=== PATIENT | female | born 1985 | race Caucasian/White ===

== ENCOUNTER 2022-12-25 10:02 | Emergency (ER) | payer BC, SELFPAY ==
--- NOTE | ~2022-12-25 | CT_ITS ---
EXAMINATION: CT HEAD WITHOUT CONTRAST CLINICAL INFORMATION: Headache for 2 weeks COMPARISON: None TECHNIQUE: Contiguous axial imaging was performed from the skull base to vertex without intravenous administration of contrast. This CT examination was performed using dose optimization techniques as appropriate, variously including the following: *Automated exposure control *Adjustment of mA and/or kV according to patient size (this includes techniques or standardized protocols for targeted exams where dose is matched to indication/reason for exam; i.e. extremities or head) *Use of iterative reconstruction technique DLP: 602 mGy-cm FINDINGS: There is no acute intra-axial, extra-axial bleed, masses or midline shift. There is no acute infarction in evolution. The avila to white matter differentiation is maintained. The lateral ventricles are symmetrical in size and configuration without enlargement. There is no edema. No abnormality seen in the posterior fossa. Bone windows reveal no calvarial abnormality. Bilateral paranasal sinuses and mastoid air cells are well-aerated CT/CT head/brain wo IV con IMPRESSION: No acute intracranial process seen.
[2022-12-25 11:17] VITALS: BP 131/82; PULSE 68; RESP 16; TEMP 36.7; O2SAT 99; BMI 27.4
--- NOTE | 2022-12-25 11:19 | ED_ITS ---
HPI - General Adult General Chief complaint: Headache <TALITA Llamas - Last Filed: 12/31/22 11:23> Stated complaint: Headache/Eye pressure/Ear pain <TALITA Llamas - Last Filed: 12/31/22 11:23> Time Seen by Provider: 12/25/22 12:57 <TALITA Llamas - Last Filed: 12/31/22 11:23> Source: patient <Erendira MottaEVE medrano - Last Filed: 12/25/22 17:57> Mode of arrival: ambulatory <Erendira Ayala EVE Santa - Last Filed: 12/25/22 17:57> Limitations: no limitations <Erendira Lucymanny Santa CNP - Last Filed: 12/25/22 17:57> History of Present Illness HPI narrative: Patient is a 37-year-old female who presents emergency department for evaluation of a headache. She was referred from urgent care. Patient has been experiencing headaches for the past 2 weeks, with associated nausea, bilateral eye pain. She states the headache has been overall constant, unrelieved with acetaminophen or ibuprofen. Denies any history of migraine headaches in the past. She reports a history of a TIA when she was in her 20s. Denies confusion, difficulty with speech, vision changes, dizziness, lightheadedness, neck pain, neck stiffness, chest pain, shortness of breath, numbness or tingling of the extremities, weakness of the extremities. <Erendira Ayala EVE Santa - Last Filed: 12/25/22 17:57> Related Data Allergies/adverse reactions: Allergies Allergy/AdvReac Type Severity Reaction Status Date / Time sulfamethoxazole Allergy Intermediate HIVES Unverified 08/11/20 17:04 [From BACTRIM] trimethoprim [From BACTRIM] Allergy Intermediate HIVES Unverified 08/11/20 17:04 ethinyl estradiol AdvReac Intermediate TIA Unverified 08/11/20 17:04 [From ORTHO TRI-CYCLEN (28)] naproxen [NAPROXEN] AdvReac Intermediate GI UPSET Unverified 08/11/20 17:04 norgestimate AdvReac Intermediate TIA Unverified 08/11/20 17:04 [From ORTHO TRI-CYCLEN (28)] <TALITA Llamas - Last Filed: 12/31/22 11:23> Review of Systems Review of Systems: Constitutional : No Fever, No Chills, No Fatigue ENT/Mouth : No sore throat, No Rhinorrhea Eyes: No Eye Pain, No Swelling, No Redness Cardiovascular : No Chest Pain, No SOB, No Dyspnea on Exertion Respiratory : No Cough, No Sputum Gastrointestinal : No Nausea, No Vomiting, No Diarrhea, No abdominal Pain Genitourinary : No Dysuria, No Urinary Frequency, No Hematuria, Musculoskeletal : No joint pain, No Myalgias, No Joint Swelling Skin : No Skin Lesions, No rash Neuro : No Weakness, No Numbness, No Dizziness, positive Headache Psych : No Anxiety/Panic, No Depression Heme/Lymph: No Bruising, No Bleeding,No Lymphadenopathy Endocrine : No Polyuria, No Polydipsia <Erendira Santa CNP - Last Filed: 12/25/22 17:57> Yes all other systems are reviewed and are negative <Erendira Santa CNP - Last Filed: 12/25/22 17:57> [facility] Past Medical History Attestation statement: The following information was validated with the patient. <Erendira Santa CNP - Last Filed: 12/25/22 17:57> Source: old records reviewed <Erendira Santa CNP - Last Filed: 12/25/22 17:57> Social History Social History: Social History Alcohol intake: unknown Smoked in Last 30 Days: No Use of substances other than those prescribed or required for medical reasons: Unknown Advance Directives: No Advance Directives Information Provided: No <TALITA Llamas - Last Filed: 12/31/22 11:23> Physical Exam ED Vital Signs: Vital Signs - 24 hr 12/25/22 11:17 Temperature 98.1 F Pulse Rate 68 Respiratory Rate 16 Blood Pressure 131/82 Pulse Oximetry 99 Oxygen Delivery Method Room Air BMI result Body Mass Index 27.4 <TALITA Llamas - Last Filed: 12/31/22 11:23> Vital Signs - 24 hr 12/25/22 11:17 Temperature 98.1 F Pulse Rate 68 Respiratory Rate 16 Blood Pressure 131/82 Pulse Oximetry 99 Oxygen Delivery Method Room Air BMI result Body Mass Index 27.4 <Erendira Santa CNP - Last Filed: 12/25/22 17:57> Appearance: Alert.?Oriented to person, place and time. No acute distress.?Normal affect. Eyes: Pupils equal, round and reactive to light.? ENT: Pharynx normal.?? Neck: Normal inspection.? Neck supple.?? CVS: Heart sounds normal. Normal heart rate and rhythm.? Pulses normal.?? Respiratory: No respiratory distress.? Lung sounds clear to auscultation bilaterally?? Abdomen: Soft and non-tender. Normoactive bowel sounds. Skin: Skin warm and dry.? Normal skin color.? Extremities: No lower extremity edema.? Neuro: No focal neurological deficit observed, CN II-XII intact, normal sensory observed, normal coordination observed. Level of consciousness: Appropriate for age. Motor strength: Proximal right upper extremity 5 /5, distal right upper extremity 5 /5, proximal left upper extremity 5 /5, distal left upper extremity 5 /5, right lower extremity 5 /5, left lower extremity 5 /5.?Speech: Normal, Gait: Normal, Uuyvpj-[id number] test: Normal, Syej-ru-[id number] test: Normal. No focal neuro deficits. Ambulates with normal steady gait. <Erendira Santa CNP - Last Filed: 12/25/22 17:57> Course Course Course Narrative: RME: 37 yold female presents to the ED for headache for 2 weeks, nausea, and bilateral eye pain. Patient denies any weakness in extremites Negative for any neuro deficits on exam. eyes appear normal on inspection. Vital signs stable. SARS and Head CT ordered. labs. Ear exam is normal. no facial droop. NO blurry vision presently. <TALITA Llamas - Last Filed: 12/31/22 11:23> Reevaluation(s) Reevaluation #1: CBC is unremarkable. CMP is overall unremarkable. is negative. COVID- 19, influenza, RSV are all negative. Head CT is without any acute intracranial process. Advised by nursing staff at this time that they presented to patient's room for re-evaluation, her IV had been removed, her personal belongings gone from the room, be checked in the waiting room and patient is not present. Suspect that patient eloped at this time. attempted to call patient at her phone number, she did not answer. <Erendira Santa, BODY SHOP ESTIMATOR - Last Filed: 12/25/22 17:57> Time: 14:47 <Erendira Ayala EVE Santa - Last Filed: 12/25/22 17:57> Medications Administered Discontinued Medications Generic Name Dose Route Start Last Admin Trade Name Frehaley PRN Reason Stop Dose Admin Diphenhydramine HCl 25 mg 12/25/22 13:36 12/25/22 14:10 Diphenhydramine Hcl 50 Mg/Ml Vial IVPUSH 12/25/22 13:37 25 mg ONCE ONE Administration Sodium Chloride 1,000 mls @ 999 mls/hr 12/25/22 13:45 12/25/22 14:11 Ns IV 12/25/22 14:45 999 mls/hr .Q1H1M JIMMY Administration Ketorolac Tromethamine 30 mg 12/25/22 13:36 12/25/22 14:10 Ketorolac Tromethamine 30 Mg/Ml Vial IVPUSH 12/25/22 13:37 30 mg ONCE ONE Administration Metoclopramide HCl 10 mg 12/25/22 13:37 12/25/22 14:11 Metoclopramide Hcl 10 Mg/2 Ml Vial IVPUSH 12/25/22 13:38 10 mg ONCE ONE Administration <TALITA Llamas - Last Filed: 12/31/22 11:23> Medications Administered Discontinued Medications Generic Name Dose Route Start Last Admin Trade Name Mago PRN Reason Stop Dose Admin Diphenhydramine HCl 25 mg 12/25/22 13:36 12/25/22 14:10 Diphenhydramine Hcl 50 Mg/Ml Vial IVPUSH 12/25/22 13:37 25 mg ONCE ONE Administration Sodium Chloride 1,000 mls @ 999 mls/hr 12/25/22 13:45 12/25/22 14:11 Ns IV 12/25/22 14:45 999 mls/hr .Q1H1M JIMMY Administration Ketorolac Tromethamine 30 mg 12/25/22 13:36 12/25/22 14:10 Ketorolac Tromethamine 30 Mg/Ml Vial IVPUSH 12/25/22 13:37 30 mg ONCE ONE Administration Metoclopramide HCl 10 mg 12/25/22 13:37 12/25/22 14:11 Metoclopramide Hcl 10 Mg/2 Ml Vial IVPUSH 12/25/22 13:38 10 mg ONCE ONE Administration <Erendira Santa CNP - Last Filed: 12/25/22 17:57> Medical Decision Making Medical Decision Making [facility] Narrative: patient is a 37-year-old female with past medical reported past medical history of prior TIA presenting to the emergency department from urgent care for evaluation of intractable headache, nausea, bilateral eye pressure. overall sh manny is well-appearing at the time of my initial examination, drinking liquids at this time, tolerating well. Vital signs are stable. No focal neurological deficits Upon examination. Nursing staff at bedside to insert IV for medication administration, suspect migraine at this time, patient to receive 1 L normal saline IV fluid, ketorolac IV, Reglan. IV, Benadryl IV, and will review labs and CT from [facility]. <Erendira Santa CNP - Last Filed: 12/25/22 17:57> Differential Diagnosis Differential Diagnoses: The differential diagnosis associated with the presentation includes <Erendira Santa CNP - Last Filed: 12/25/22 17:57> Lab Data [facility] Lab Attestation statement: I reviewed the patient's lab results. <Erendira Santa CNP - Last Filed: 12/25/22 17:57> Result Diagrams: 12/25/22 11:42 12/25/22 11:42 <TALITA Llamas - Last Filed: 12/31/22 11:23> Labs: Lab Results 12/25/22 12/25/22 12/25/22 Range/Units 11:37 11:42 11:42 WBC 5.3 (4.8-10.8) X10*3/uL RBC 4.99 (4.20-5.50) X10*6/uL Hgb 13.9 (12.0-16.0) g/dl Hct 42.8 (37.0-47.0) % MCV 85.8 (80.0-98.0) fL MCH 27.9 (27.0-33.0) pg MCHC 32.5 (31.0-35.0) g/dl RDW 12.9 (11.0-16.0) % Plt Count TNP MPV 12.3 (9.4-12.3) fL Immature Gran % (Auto) 0.2 (0.0-0.4) % Neut % (Auto) 57.8 (45-73) % Lymph % (Auto) 33.1 (20-40) % [place] % (Auto) 7.0 (2-11) % Eos % (Auto) 1.5 (0-4) % Baso % (Auto) 0.4 (0-2) % Lymph # (Auto) 1.8 (1.2-4.9) X10*3/uL [place] # (Auto) 0.4 (0.1-1.2) X10*3/uL Eos # (Auto) 0.1 (0.0-0.4) X10*3/uL Baso # (Auto) 0.0 (0.0-0.2) X10*3/uL Abs Immat Gran (auto) 0.01 (0.00-0.03) X10*3/uL Absolute Neuts (auto) 3.1 (2.0-8.3) x10*3/uL Absolute Nucleated RBC 0.000 (0.0-0.012) X10*3/uL Nucleated RBC % (auto) 0.0 (0.0-0.2) /100WBC Smear Tech's Comments VERIFIED PT (10.0-13.1) SEC INR (0.9-1.1) APTT (26.0-36.4) SEC Sodium 140 (135-145) mmol/L Potassium 4.6 (3.3-5.1) mmol/L Chloride 107 (96-108) mmol/L Carbon Dioxide 22 (22-29) mmol/L Anion Gap 16 (12-20) BUN 17 H (9-16) mg/dL Creatinine 0.70 (0.5-1.4) mg/dL Estim Creat Clear Calc 106.3 Estimated GFR > 60 Random Glucose 96 (60-115) mg/dL Calcium 9.4 (8.4-10.2) mg/dL Total Bilirubin 0.4 (0.0-1.0) mg/dL AST 15 (5-31) U/L ALT 10 (0-31) U/L Alkaline Phosphatase 42 (39-117) U/L Total Protein 7.2 (6.5-8.0) g/dL Albumin 4.5 (3.5-5.0) g/dL Beta HCG, Quant < 2 mIU/mL Influenza Type A (PCR) NEGATIVE (Negative) Influenza Type B (PCR) NEGATIVE (Negative) RSV RNA Qual (PCR) NEGATIVE (Negative) SARS-CoV-2 RNA (RT-PCR) NEGATIVE (Negative) 12/25/22 Range/Units 12:14 WBC (4.8-10.8) X10*3/uL RBC (4.20-5.50) X10*6/uL Hgb (12.0-16.0) g/dl Hct (37.0-47.0) % MCV (80.0-98.0) fL MCH (27.0-33.0) pg MCHC (31.0-35.0) g/dl RDW (11.0-16.0) % Plt Count MPV (9.4-12.3) fL Immature Gran % (Auto) (0.0-0.4) % Neut % (Auto) (45-73) % Lymph % (Auto) (20-40) % [place] % (Auto) (2-11) % Eos % (Auto) (0-4) % Baso % (Auto) (0-2) % Lymph # (Auto) (1.2-4.9) X10*3/uL [place] # (Auto) (0.1-1.2) X10*3/uL Eos # (Auto) (0.0-0.4) X10*3/uL Baso # (Auto) (0.0-0.2) X10*3/uL Abs Immat Gran (auto) (0.00-0.03) X10*3/uL Absolute Neuts (auto) (2.0-8.3) x10*3/uL Absolute Nucleated RBC (0.0-0.012) X10*3/uL Nucleated RBC % (auto) (0.0-0.2) /100WBC Smear Tech's Comments PT 11.3 (10.0-13.1) SEC INR 1.0 (0.9-1.1) APTT 36.9 H (26.0-36.4) SEC Sodium (135-145) mmol/L Potassium (3.3-5.1) mmol/L Chloride (96-108) mmol/L Carbon Dioxide (22-29) mmol/L Anion Gap (12-20) BUN (9-16) mg/dL Creatinine (0.5-1.4) mg/dL Estim Creat Clear Calc Estimated GFR Random Glucose (60-115) mg/dL Calcium (8.4-10.2) mg/dL Total Bilirubin (0.0-1.0) mg/dL AST (5-31) U/L ALT (0-31) U/L Alkaline Phosphatase (39-117) U/L Total Protein (6.5-8.0) g/dL Albumin (3.5-5.0) g/dL Beta HCG, Quant mIU/mL Influenza Type A (PCR) (Negative) Influenza Type B (PCR) (Negative) RSV RNA Qual (PCR) (Negative) SARS-CoV-2 RNA (RT-PCR) (Negative) <TALITA Llamas - Last Filed: 12/31/22 11:23> Lab Results 12/25/22 12/25/22 12/25/22 Range/Units 11:37 11:42 11:42 WBC 5.3 (4.8-10.8) X10*3/uL RBC 4.99 (4.20-5.50) X10*6/uL Hgb 13.9 (12.0-16.0) g/dl Hct 42.8 (37.0-47.0) % MCV 85.8 (80.0-98.0) fL MCH 27.9 (27.0-33.0) pg MCHC 32.5 (31.0-35.0) g/dl RDW 12.9 (11.0-16.0) % Plt Count TNP MPV 12.3 (9.4-12.3) fL Immature Gran % (Auto) 0.2 (0.0-0.4) % Neut % (Auto) 57.8 (45-73) % Lymph % (Auto) 33.1 (20-40) % [place] % (Auto) 7.0 (2-11) % Eos % (Auto) 1.5 (0-4) % Baso % (Auto) 0.4 (0-2) % Lymph # (Auto) 1.8 (1.2-4.9) X10*3/uL [place] # (Auto) 0.4 (0.1-1.2) X10*3/uL Eos # (Auto) 0.1 (0.0-0.4) X10*3/uL Baso # (Auto) 0.0 (0.0-0.2) X10*3/uL Abs Immat Gran (auto) 0.01 (0.00-0.03) X10*3/uL Absolute Neuts (auto) 3.1 (2.0-8.3) x10*3/uL Absolute Nucleated RBC 0.000 (0.0-0.012) X10*3/uL Nucleated RBC % (auto) 0.0 (0.0-0.2) /100WBC Smear Tech's Comments VERIFIED PT (10.0-13.1) SEC INR (0.9-1.1) APTT (26.0-36.4) SEC Sodium 140 (135-145) mmol/L Potassium 4.6 (3.3-5.1) mmol/L Chloride 107 (96-108) mmol/L Carbon Dioxide 22 (22-29) mmol/L Anion Gap 16 (12-20) BUN 17 H (9-16) mg/dL Creatinine 0.70 (0.5-1.4) mg/dL Estim Creat Clear Calc 106.3 Estimated GFR > 60 Random Glucose 96 (60-115) mg/dL Calcium 9.4 (8.4-10.2) mg/dL Total Bilirubin 0.4 (0.0-1.0) mg/dL AST 15 (5-31) U/L ALT 10 (0-31) U/L Alkaline Phosphatase 42 (39-117) U/L Total Protein 7.2 (6.5-8.0) g/dL Albumin 4.5 (3.5-5.0) g/dL Beta HCG, Quant < 2 mIU/mL Influenza Type A (PCR) NEGATIVE (Negative) Influenza Type B (PCR) NEGATIVE (Negative) RSV RNA Qual (PCR) NEGATIVE (Negative) SARS-CoV-2 RNA (RT-PCR) NEGATIVE (Negative) 12/25/22 Range/Units 12:14 WBC (4.8-10.8) X10*3/uL RBC (4.20-5.50) X10*6/uL Hgb (12.0-16.0) g/dl Hct (37.0-47.0) % MCV (80.0-98.0) fL MCH (27.0-33.0) pg MCHC (31.0-35.0) g/dl RDW (11.0-16.0) % Plt Count MPV (9.4-12.3) fL Immature Gran % (Auto) (0.0-0.4) % Neut % (Auto) (45-73) % Lymph % (Auto) (20-40) % [place] % (Auto) (2-11) % Eos % (Auto) (0-4) % Baso % (Auto) (0-2) % Lymph # (Auto) (1.2-4.9) X10*3/uL [place] # (Auto) (0.1-1.2) X10*3/uL Eos # (Auto) (0.0-0.4) X10*3/uL Baso # (Auto) (0.0-0.2) X10*3/uL Abs Immat Gran (auto) (0.00-0.03) X10*3/uL Absolute Neuts (auto) (2.0-8.3) x10*3/uL Absolute Nucleated RBC (0.0-0.012) X10*3/uL Nucleated RBC % (auto) (0.0-0.2) /100WBC Smear Tech's Comments PT 11.3 (10.0-13.1) SEC INR 1.0 (0.9-1.1) APTT 36.9 H (26.0-36.4) SEC Sodium (135-145) mmol/L Potassium (3.3-5.1) mmol/L Chloride (96-108) mmol/L Carbon Dioxide (22-29) mmol/L Anion Gap (12-20) BUN (9-16) mg/dL Creatinine (0.5-1.4) mg/dL Estim Creat Clear Calc Estimated GFR Random Glucose (60-115) mg/dL Calcium (8.4-10.2) mg/dL Total Bilirubin (0.0-1.0) mg/dL AST (5-31) U/L ALT (0-31) U/L Alkaline Phosphatase (39-117) U/L Total Protein (6.5-8.0) g/dL Albumin (3.5-5.0) g/dL Beta HCG, Quant mIU/mL Influenza Type A (PCR) (Negative) Influenza Type B (PCR) (Negative) RSV RNA Qual (PCR) (Negative) SARS-CoV-2 RNA (RT-PCR) (Negative) <Erendira Santa CNP - Last Filed: 12/25/22 17:57> Independent Interpretation I performed an independent interpretation of an: CT Scan <Erendira Santa CNP - Last Filed: 12/25/22 17:57> Radiology Impression Discussion of test interpretation with radiology: I have reviewed the radiologist's reading. <Erendira Santa CNP - Last Filed: 12/25/22 17:57> Radiologist Impression: CT/CT head/brain wo IV con IMPRESSION: No acute intracranial process seen. <Erendira Santa CNP - Last Filed: 12/25/22 17:57> Discharge Plan Discharge Clinical Impression: Headache <TALITA Llamas - Last Filed: 12/31/22 11:23> Patient Disposition: Elopement <TALITA Llamas - Last Filed: 12/31/22 11:23> Interventions: ED Discharge Assessment Last Done: 12/25/22 14:56 <TALITA Llamas - Last Filed: 12/31/22 11:23> Discharge Date/Time: 12/25/22 14:56 <TALITA Llamas - Last Filed: 12/31/22 11:23>
[2022-12-25 11:58] LABS: Basophils Percent Auto 0.4 % (0-2); Eosinophils Absolute Auto 0.1 X10*3/uL (0.0-0.4); Eosinophils Percent Auto 1.5 % (0-4); Hematocrit 42.8 % (37.0-47.0); Hemoglobin 13.9 g/dl (12.0-16.0); Imm Gran Abs Auto 0.01 X10*3/uL (0.00-0.03); Imm Gran Pct Auto 0.2 % (0.0-0.4); Lymphocytes Absolute Auto 1.8 X10*3/uL (1.2-4.9); Lymphocytes Percent Auto 33.1 % (20-40); MANUAL DIFF FLAG SCAN; Mean Corpuscular HGB Conc 32.5 g/dl (31.0-35.0); Mean Corpuscular Hemoglobin 27.9 pg (27.0-33.0); Mean Corpuscular Volume 85.8 fL (80.0-98.0); Mean Platelet Volume 12.3 fL (9.4-12.3); Monocytes Absolute Auto 0.4 X10*3/uL (0.1-1.2); Neutrophils Absolute Auto 3.1 x10*3/uL (2.0-8.3); Neutrophils Percent Auto 57.8 % (45-73); PLT CLUMP 1; Red Blood Count 4.99 X10*6/uL (4.20-5.50); Red Cell Distribution Width 12.9 % (11.0-16.0); SCAN SMEAR FLAG 1
[2022-12-25 12:25] LABS: Influenza A PCR NEGATIVE (Negative); Influenza B PCR NEGATIVE (Negative); Resp Syncy Virus RNA Qual PCR NEGATIVE (Negative); SARS COV2 PCR INHOUSE NEGATIVE (Negative)
[2022-12-25 12:29] LABS: Alanine Aminotransferase 10 U/L (0-31); Albumin Level 4.5 g/dL (3.5-5.0); Alkaline Phosphatase 42 U/L (39-117); Anion Gap 16 (12-20); Aspartate Amino Transferase 15 U/L (5-31); Bilirubin Total 0.4 mg/dL (0.0-1.0); Blood Urea Nitrogen 17 mg/dL (9-16); Calcium 9.4 mg/dL (8.4-10.2); Carbon Dioxide 22 mmol/L (22-29); Chloride 107 mmol/L (96-108); Creatinine Clr Calc Pharmacy 106.3; Estimated Glomerular Filt Rate > 60; Glucose Random 96 mg/dL (60-115); HCG Quantitative < 2 mIU/mL; Potassium 4.6 mmol/L (3.3-5.1); Sodium 140 mmol/L (135-145); Total Protein 7.2 g/dL (6.5-8.0)
[2022-12-25 12:30] LABS: Prothrombin Time 11.3 SEC (10.0-13.1)
[2022-12-25 12:33] LABS: SLIDE REVIEW VERIFIED; White Blood Count 5.3 X10*3/uL (4.8-10.8)
[2022-12-25 12:33] LABS: Partial Thromboplastin Time 36.9 SEC (26.0-36.4)
--- NOTE | 2022-12-25 12:44 | PC.NURSE ---
Patient AOx 4 no respiratory distress noted Neuros intact no facial droop no deviation of tongue no drift noted. Patient took OTC pain meds for headache with little effect complaint of some photosensitivity no history of migraines. Patient does have history of TIA when younger not on blood thinners will CTM
[2022-12-25] MEDS: Ketorolac Tromethamine 30 MG/ML VIAL IVPUSH (14:10)
[2022-12-25] MEDS: diphenhydrAMINE HCL 50 MG/ML VIAL 25 MG IVPUSH (14:10)
[2022-12-25] MEDS: Metoclopramide HCl 10 MG/2 ML VIAL IVPUSH (14:11)
[2022-12-25] MEDS: 0.9 % Sodium Chloride 1,000 ML 999 ML IV (14:11)
--- NOTE | 2022-12-25 14:46 | PC.NURSE ---
Patient not in room IV removed and fluids turned off patient not in lobby or any bathrooms in ED no staff saw patient leave two attempts to call patient house superintendent aware.
== END 2022-12-25 14:56 | disposition left against medical advice (07) ==
PROVIDERS: Physician Assistant; Emergency Provider Emergency Medicine; PCP Internal Medicine
DX: R51.9 Headache, unspecified (principal); R11.0 Nausea; H57.13 Ocular pain, bilateral; Z20.822 Contact with and (suspected) exposure to COVID-19; Z20.828 Contact with and (suspected) exposure to other viral communicable diseases; Z86.73 Personal history of transient ischemic attack (TIA), and cerebral infarction without residual deficits
CPT/HCPCS: 0241U; 36415; 70450; 80053; 84702; 85025; 85610; 85730; 96374; 96375; 99284; J1200; J1885; J2765

== ENCOUNTER 2024-11-20 05:52 | Emergency (ER) | payer BC, SELFPAY ==
--- NOTE | ~2024-11-20 | XR_ITS ---
EXAMINATION: XR SACRUM AND COCCYX CLINICAL INFORMATION: trauma, fall COMPARISON: None available. TECHNIQUE: 2 AP views of the sacrum and lateral view of the coccyx were obtained. FINDINGS: The pelvis is gynecoid. On the lateral projection, there may be a subtle nondisplaced fracture of the distal sacrum just above the coccyx. (5th sacral segment) No fracture, dislocation, or suspicious bone lesion. 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 SI joints appear normal otherwise without erosion or and only mild degenerative arthritis. No soft tissue abnormalities. XR/XR sacrum coccyx min 2V IMPRESSION: 1. Possible nondisplaced fracture of the fifth sacral segment, only seen on lateral. This is not definitive as there is extensive anatomical variation of the sacrum and coccyx in this region. Correlate with mechanism of injury. 2. 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 No inflammatory changes. 3. Exam otherwise normal. Electronically signed by: Vj Alan MD 11/20/2024 09:05 AM VALERIE PHIPPS
[2024-11-20 06:07] VITALS: BP 125/64; PULSE 98; RESP 18; TEMP 36.7; O2SAT 96; BMI 28.3
--- NOTE | 2024-11-20 09:39 | ED_ITS ---
HPI - Back Pain/Injury General Chief Complaint: Back Pain/Injury Stated Complaint: fell on the ice , lower back pain Time Seen by Provider: 11/20/24 09:38 Source: patient Limitations: no limitations History of Present Illness ED Provider: Erendira Santa NP HPI Narrative: Patient is a 39-year-old female who presents to the emergency department for evaluation after mechanical slip and fall on ice 3 days ago where she landed onto coccyx. Reports that she was evaluated at [facility], states that she had an x-ray obtained which did not show evidence of a fracture who was advised that there may be nerve impingement which she may benefit from a steroid injection although they did not have an appointment available to offer her until the end of November. The additionally told her that she would need a scan , she presumes an MRI to evaluate further for potential nerve involvement but this is not scheduled until December. She received a prescription for Medrol Dosepak which she began taking yesterday but so far she states has not provided her with any relief. She is having sharp pain and finds it difficult to sit still and has had a hard time sleeping. She does state that she has an appointment next week scheduled at [facility] for cervical steroid injection that she receives due to a compression fracture and subsequent migraines, she plans to contact their office to see whether they can alternatively provide her with steroid injection for her new injury. Denies fevers, chills, burning with micturition, urinary frequency/urgency/hesitancy, bladder or bowel dysfunction, numbness or tingling of the perineum or bilateral legs. Denies any recent surgical procedures, any known immune compromising conditions, personal history of cancer, or IV drug usage. elicited complaint: back pain Related Data Previous Rx's ?Medication ?Instructions ?Recorded oxycodone 5 mg tablet 5 mg PO Q6H PRN pain #10 tabs 11/20/24 Allergies Allergy/AdvReac Type Severity Reaction Status Date / Time sulfamethoxazole Allergy Intermediate HIVES Verified 11/20/24 06:07 [From BACTRIM] trimethoprim [From BACTRIM] Allergy Intermediate HIVES Verified 11/20/24 06:07 ethinyl estradiol AdvReac Intermediate TIA Verified 11/20/24 06:07 [From ORTHO TRI-CYCLEN (28)] naproxen [NAPROXEN] AdvReac Intermediate GI UPSET Verified 11/20/24 06:07 norgestimate AdvReac Intermediate TIA Verified 11/20/24 06:07 [From ORTHO TRI-CYCLEN (28)] Review of Systems Review of Systems: Yes all other systems are reviewed and are negative [facility] Past Medical History Attestation statement: The following information was validated with the patient. Source: old records reviewed Social History Social History Alcohol intake: unknown Advance Directives: No Advance Directives Information Provided: Yes Do you have a plan to hurt others: No Plan Physical Exam 2 Vital Signs: Vital Signs: Last Vital Signs Temp 98.1 F 11/20/24 06:07 Pulse 98 11/20/24 06:07 Resp 18 11/20/24 06:07 BP 125/64 11/20/24 06:07 Pulse Ox 96 11/20/24 06:07 O2 Del Method Room Air 11/20/24 06:07 BMI result Body Mass Index 28.3 Appearance: Alert.?Oriented to person, place and time. No acute distre ss.?Normal affect. Eyes: Pupils equal, round and reactive to light.? ENT: Pharynx normal.?? Neck: Normal inspection.? Neck supple.?? CVS: Heart sounds normal. Normal heart rate and rhythm.? Pulses normal; bilateral radial pulses 2+, bilateral posterior tibial/dorsalis pedis pulses 2+.? Respiratory: No respiratory distress.? Lung sounds clear to auscultation bilaterally?? Abdomen: Soft and non-tender. Normoactive bowel sounds. No pulsatile mass.?? Skin: Skin warm and dry.? Normal skin color.? Normal skin turgor.?? Extremities: No lower extremity edema.? No calf ttp? Back: + mild tenderness f bilateral SI joint. No CVA tenderness. No midline spinal tenderness, step-off's, or deformity. Full ROM intact in bilateral lower extremities. Straight leg test negative on right; Straight leg test negative on left. No rashes, lesions, areas of induration or fluctuance, or signs of infection noted., Neuro: Moves all extremities spontaneously. 5/5 strength in hip extension/flexion, abduction, adduction. Sensation to light touch intact bilaterally. Patellar and Achilles reflex 2+ bilaterally. No ataxia, gait normal and steady.. No focal neuro deficits. Medical Decision Making Medical Decision Making MDM Narrative: Patient is a 39-year-old female who presents emergency department for evaluation of traumatic sacral pain after mechanical slip and fall as per HPI. Unfortunately she drove herself here today, and does need to leave to get home soon. Would defer any medication management due to concern for sedating/drowsy effects. Advised to continue use of the methylprednisolone pack as prescribed, further reiterated to avoid OTC NSAIDs. Discussed conservative treatment including rest, ice, alleviation of pressure from the sacrum/coccyx with use of a donut style pillow. She does have an upcoming flight next week she is worried whether she will be able to sit through the flight comfortably. I did advise her that this may further exacerbate her pain in worsen things, she would need to make a decision as to whether she will continue with her travel as scheduled. Offered contact information for Orthopedic office associated with our hospital she however declines. She plans to contact the [facility] again as well as [facility] to see whether they will get her in sooner for additional treatment. Live agree to a short course of oxycodone for acute pain management in the setting of possible 5th sacral segment fracture seen on XR imaging. She does state that she has a history of a sacral fracture a few years back she is not certain where in the sacrum this was. However given the mechanism of injury, fracture may very well be possible. She additionally has mild degenerative arthritic changes to the bilateral SI joints which may also be attributing to diffuse pain in this area. Discussed with patient can not completely exclude herniated disc, or impingement of nerves, at this time there is no indication for emergent MRI. On neurological exam there are no deficits. Exam findings not consistent with cauda equina syndrome. No recent fevers, unintentional weight loss, history of IVDA, high-risk past medical history, immunosuppression, recent surgery or lumbar puncture to suggest spinal infectio n, epidural abscess, malignancy. No genitourinary symptoms, afebrile, no CVA tenderness, unlikely urinary tract infection, pyelonephritis, renal colic. No history of nephrolithiasis/ureteral calculi. Differential Diagnosis Differential Diagnoses: The differential diagnosis associated with the presentation includes ( see narrative above) Admission/Observation Consideration of admission/observation: Escalation of care including admission/observation considered ( see narrative above) Independent Interpretation I performed an independent interpretation of an: Plain X-Ray Radiology Impression Discussion of test interpretation with radiology: I have reviewed the radiologist's reading. Radiologist Impression: XR/XR sacrum coccyx min 2V IMPRESSION: 1. Possible nondisplaced fracture of the fifth sacral segment, only seen on lateral. This is not definitive as there is extensive anatomical variation of the sacrum and coccyx in this region. Correlate with mechanism of injury. 2. 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 No inflammatory changes. 3. Exam otherwise normal. External Record Review External record reviewed: Outpatient record and Other I attest that I have reviewed patients [employer], and at the time prescribing the patient a controlled substance is appropriate based off of patients diagnosis and treatment plan. Prescription Management I considered prescription management with: Pain Medication Discharge Plan Discharge Clinical Impression: Closed sacral fracture Patient Disposition: Home, Self-Care Instructions: Sacral Fracture (ED) Additional Instructions: Follow-up with [facility] as you have previously scheduled. At your discretion as mentioned you may have a conversation with them about considering treatment for your acute condition. As discussed, it appears as though there may be a fracture of the 5th segment of your sacrum. You did admit to having a prior fracture a few years back emergent not have access to this imaging to determine if things appear new or otherwise stable. However given your recent injury, it is quite possible this is a new fracture continue taking the Medrol Dosepak your previously prescribed. I have sent short prescription for oxycodone to your pharmacy to use for severe pain. This is a narcotic medication. It can be addicting. It may make you drowsy. You should not drive, drink alcohol, or work while taking this medication. Consider purchasing an [id number] donut shaped pillow to help alleviate pressure from this area of pain. Contact your primary care doctor's office today to arrange for a follow-up visit for further evaluation and management if you are unable to get in to see your specialist sooner, especially given your upcoming trip you may require additional analgesia support. XR/XR sacrum coccyx min 2V IMPRESSION: 1. Possible nondisplaced fracture of the fifth sacral segment, only seen on lateral. This is not definitive as there is extensive anatomical variation of the sacrum and coccyx in this region. Correlate with mechanism of injury. 2. 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 No inflammatory changes. 3. Exam otherwise normal. Prescriptions: New oxycodone 5 mg tablet 5 mg PO Q6H PRN (Reason: pain) Qty: 10 0RF Rx Instructions: Partial Fill upon patient request. Referrals: Idris Frias MD [Primary Care Provider] - Print Language: Estonian
--- NOTE | 2024-11-20 10:25 | PC.NURSE ---
pt was assessed by provider and radiology results were reviewed with patient. the discharge care plan was reviewed, she is resting in a sidelying postion, transferring to sitting then stand is very guarded.
[2024-11-20 10:29] VITALS: BP 125/64; PULSE 98; RESP 18; TEMP 36.7; O2SAT 96
== END 2024-11-20 10:30 | disposition home or self-care (01) ==
PROVIDERS: Emergency Provider Emergency Medicine; PCP Internal Medicine
DX: S32.10XA Unspecified fracture of sacrum, initial encounter for closed fracture (principal); M54.50 Low back pain, unspecified; W00.0XXA Fall on same level due to ice and snow, initial encounter; Y93.89 Activity, other specified; Y92.89 Other specified places as the place of occurrence of the external cause; Y99.8 Other external cause status
CPT/HCPCS: 72220; 99282; 99283

== ENCOUNTER → 2024-11-20 07:11 | Outpatient (BNV) | payer BC, SELFPAY | PROVIDERS: Emergency Provider Emergency Medicine; PCP Internal Medicine; Visit Provider Radiology Diagnostic Radiology | DX: S32.10XA Unspecified fracture of sacrum, initial encounter for closed fracture (principal); W00.0XXA Fall on same level due to ice and snow, initial encounter | CPT/HCPCS: 72220 ==

== ENCOUNTER 2025-11-10 15:48 | Emergency (ER) | payer BC, SELFPAY ==
--- OUTSIDE RECORDS SUMMARY | 2019-10-28 12:11 | XMS_ITS | Encounter Summary ---
Author Organization [facility] Address [address] [facility] [address] [place] [phone] Phone Care Team Providers Care Yard Labor Supervisor Name Role Phone Idris Frias Primary Care Provider [phone] Encounter Details Date Type Department Care Team (Late st Contact Info) Description 10/28/2019 12:11 PM [facility] Encounter [facility] [address] [place] [id number] Anthony Naranjo, DALE [address] [place] [address] [place] [address] Social History Tobacco Use Types Packs/Day Years Used Date Smoking Tobacco: Never Smokeless Tobacco: Never Alcohol Use Standard Drinks/Week Comments No 0 (1 standard drink = 0.6 oz pur e alcohol) Education Answer Date Recorded Are you interested in more education? Not on jann e 03/22/2023 Are you concerned about learning? Not on file 03/22/2023 No 03/22/2023 No 03/22/2023 Digital Access Answer Date Recorded No 04/19/2023 No 04/19/2023 Reliable internet access at home? Not on file 04/19/2023 Device with a working camera? Not on file Intimate Partner Violence Answer Date R ecorded Are you denied basic needs s uch as food, clothing, or medical care? No 11/26/2023 In the past 12 months have y ou been in a relationship with a person who hurts, threatens, or tries to control you? No 11/26/2023 Are you denied basic needs s uch as food, clothing, or medical care? No 11/26/2023 In the past 12 months have y ou been in a relationship with a person who hurts, threatens, or tries to control you? No 11/26/2023 Comments No Sex and Gender Information Value Date Recorded Sex Assigned at Female 04/13/2018 7:16 PM EDT Legal Sex Female 9:16 PM EDT Gender Identity Female 04/13/2018 7:16 PM EDT Sexual Orientation Not on file documented as of this encounter Functional Status * Calculated C-SSRS Risk Score (Lifetime/Recent) Answer Date of Assessment Author No Risk Indicated 11/26/2023 8:27 PM EST Nayeli Llanos RN * [place] Suicide Severity Rating Scale (Screener/Recent Self-Report) Question Answer Date of Assessment Author 1. Wish to be (Past 1 Month) No 024 8:27 PM EST Nayeli Llanos RN 2. Non-Specific Active Suici sadie Thoughts (Past 1 Month) No 11/26/2023 8:27 PM EST Eden Llanos RN 6. Suicidal Behavior (Lifetime) No 4 8:27 PM EST Nayeli Llanos RN documented as of this encounter Plan of Treatment Not on file documented as of this encounter Procedures Procedure Name Priority Date/Time Associated Diagnosis Comments XR FOOT 3 OR MORE VIEWS (LEFT) Urgent/patient waiting 10/28/2019 12:22 PM EST Left foot pain documented in this encounter Results * XR FOOT 3 OR MORE VIEWS (LEFT) (10/28/2019 12:22 PM EST) Anatomical Region Laterality Modality Foot Left Radiographic Lou ging 10/28/2019 12:3 1 PM EST Impressions 10/28/2019 12:33 PM EST No evidence of acute fractures. POS - [id number] Narrative 10/28/2019 12:33 PM EST HISTORY: Pain laterally after injury. COMPARISON: None VIEWS: Four views FINDINGS: No evidence of fractures. No subluxations or dislocations. Joint spaces well-maintained. Procedure Note Huey Issa MD - 10/28/2019 HISTORY: Pain laterally after injury. COMPARISON: None VIEWS: Four views FINDINGS: No evidence of fractures. No subluxations or dislocations. Joint spaceswell-maintained. IMPRESSION: No evidence of acute fractures. POS - [id number] Anthony Naranjo FOOD ORDER DELIVERY RUNNER IMG XR LOWER EXTREMITY Final Re sult documented in this encounter Visit Diagnoses Not on filedocumented in this encounter Care Teams Yard Labor Supervisor Relationship Specialty Start Date End Date Idris Frias DO [email or web address] PCP - General 09/12/17 documented as of this encounter Additional Source Comments The information contained in this document represents components of the legal health record. It is not the complete legal health record.[facility]
--- NOTE | ~2025-11-10 | CT_ITS ---
EXAMINATION: CT HEAD WITHOUT CONTRAST (STROKE PROTOCOL) CLINICAL INFORMATION: Stroke protocol. COMPARISON: December 25, 2022. TECHNIQUE: Contiguous axial imaging was performed from the skull base to vertex without intravenous administration of contrast. This CT examination was performed using dose optimization techniques as appropriate, variously including the following: *Automated exposure control *Adjustment of mA and/or kV according to patient size (this includes techniques or standardized protocols for targeted exams where dose is matched to indication/reason for exam; i.e. extremities or head) *Use of iterative reconstruction technique DLP: 684 mGy-cm FINDINGS: No acute intracranial hemorrhage, mass effect, midline shift, hydrocephalus or herniation. No increased density in the MCA Bravo-white matter differentiation is normal. Posterior cranial fossa contents demonstrated no mass effect or acute hemorrhage. Normal position of the cerebellar tonsils. Sellar/suprasellar region is normal. No acute fracture in the bony calvarium. No air-fluid levels in the paranasal sinuses. Tympanic cavities and mastoid cells are aerated. CT/CT head for STROKE IMPRESSION: No acute intracranial hemorrhage or acute brain abnormality by CT. This critical result was discussed with emergency physician Dr. Max Miller prepped at 4:09 PM hours on November 10, 2025.. It was ascertained that the content and urgency of the report was understood at the time of direct communication. Electronically signed by: Jamal Newby MD 11/10/2025 04:11 PM [facility]
--- NOTE | ~2025-11-10 | CT_ITS ---
EXAMINATION: CT ANGIOGRAM HEAD AND NECK CLINICAL INFORMATION: Stroke protocol. COMPARISON: None available. Correlation made with noncontrast head CT earlier same day. TECHNIQUE: Test bolus sequences and head and neck intravenous bolus administration 70 mL of Omnipaque 350. Helical imaging was performed in the axial plane from the aortic arch to the skull vertex. A [address] head was also obtained. The data was processed at the textile technologist's workstation for generation of MIP sequences. Angled MIPs and volume rendered reformatted images were also generated at an offline 3D workstation. Stenoses are assessed in accordance with NASCET criteria unless otherwise indicated. This CT examination was performed using dose optimization techniques as appropriate, variously including the following: *Automated exposure control *Adjustment of mA and/or kV according to patient size (this includes techniques or standardized protocols for targeted exams where dose is matched to indication/reason for exam; i.e. extremities or head) *Use of iterative reconstruction technique FINDINGS: NECK CTA: -AORTIC ARCH: Normal in caliber. No significant atheromatous calcification. Three-vessel branching pattern. -GREAT VESSEL ORIGINS: Widely patent. No stenosis. -RIGHT COMMON CAROTID ARTERY: Normal in course and caliber to the level of the bifurcation. -CERVICAL RIGHT INTERNAL CAROTID ARTERY: Normal opacification without focal stenosis or occlusion. -LEFT COMMON CAROTID ARTERY: Normal in course and caliber to the level of the bifurcation. -CERVICAL LEFT INTERNAL CAROTID ARTERY: Normal opacification without focal stenosis or occlusion. -CERVICAL RIGHT VERTEBRAL ARTERY: Slightly dominant. Normal in origin, course and caliber into the skull base. -CERVICAL LEFT VERTEBRAL ARTERY: Slightly nondominant. Normal in origin, course and caliber into the skull base. OTHER, SOFT TISSUES: -No lymphadenopathy or mass. No abnormal fluid collection or soft tissue swelling. -There is a 10 mm nodule in the right posterior thyroid. Thyroid otherwise normal. -Imaged superior mediastinal structures normal. -Imaged lung apices clear. CTA OF THE BRAIN: -INTRACRANIAL INTERNAL CAROTID ARTERIES: Normal. Normal ophthalmic artery origins bilaterally. -RIGHT ANTERIOR CEREBRAL ARTERY: Normal A1 segment. Normal arborization of the distal segments. -LEFT ANTERIOR CEREBRAL ARTERY: Normal A1 segment. Normal arborization of the distal segments. -ANTERIOR COMMUNICATING ARTERY: Normal. -RIGHT MIDDLE CEREBRAL ARTERY: Normal M1 segment of the MCA without focal stenosis or occlusion. Normal bifurcation. Normal arborization of the distal segments. -LEFT MIDDLE CEREBRAL ARTERY: Normal M1 segment of the MCA without focal stenosis or occlusion. Normal bifurcation. Normal arborization of the distal segments. -RIGHT VERTEBRAL ARTERY V4: Normal in course and caliber. Normal PICA branch. -LEFT VERTEBRAL ARTERY V4: Normal in course and caliber. There is a left AICA/PICA. -BASILAR ARTERY: Normal without focal stenosis or occlusion. Normal appearance of the proximal superior cerebellar arteries. Normal basilar tip. -RIGHT POSTERIOR CEREBRAL ARTERY: Normal P1 segment. Normal opacification of the distal FIELD HAND segments. -LEFT POSTERIOR CEREBRAL ARTERY: Normal P1 segment. Normal opacification of the distal FIELD HAND segments. -POSTERIOR COMMUNICATING ARTERIES: The right is present and well seen. The left is not well visualized. Normal opacification of the superior sagittal, straight, transverse, and sigmoid sinuses. No venous thrombosis. No space-occupying hemorrhage or definite evolving infarct. CT/CT angio head neck STROKE IMPRESSION: CTA NECK: 1. No evidence of significant stenosis, occlusion, dissection, or aneurysm of the major cervical arterial vasculature. 2. Right thyroid nodule measuring 10 mm. CTA HEAD: 1. No evidence of significant stenosis, occlusion, dissection, or aneurysm of the major intracranial arterial vasculature. 2. Major cortical and dural venous sinuses are patent. 3. No space-occupying hemorrhage or evolving infarct identified. Electronically signed by: Vj lAan MD 11/10/2025 04:29 PM EST
--- NOTE | 2025-11-10 15:54 | ECG_ITS ---
Test Reason : STROKE PROTOCOL Blood Pressure : */* mmHG Vent. Rate : 90 BPM Atrial Rate : 90 BPM P-R Int : 154 ms QRS Dur : 96 ms QT Int : 376 ms P-R-T Axes : 55 -3 18 degrees QTcB Int : 459 ms Normal sinus rhythm Possible Left atrial enlargement Incomplete right bundle branch block Borderline ECG No previous ECGs available Referred By: Max Chavarria Electronically Signed By: Robel Carrasquillo
--- NOTE | 2025-11-10 15:55 | ED_ITS ---
HPI - Neuro Symptoms/Deficit General Chief Complaint: Stroke Stated Complaint: Slurring speech Time Seen by Provider: 11/10/25 15:54 Source: patient and EMS History of Present Illness ED Provider: Max Chavarria MD HPI Narrative: 40-year-old female with questionable prior TIA per report at home. Last known well just prior to arrival about 20 minutes prior to EMS arrival here. She was apparently confused had abnormal tongue protrusion and dysarthric speech per the . That came on quite abruptly the patient herself has been a difficult historian both to EMS and myself due to confusion and poor cooperative with full neurologic examination. Related Data Previous Rx's ?Medication ?Instructions ?Recorded oxycodone 5 mg tablet 5 mg PO Q6H PRN pain #10 tab s 11/20/24 Allergies Allergy/AdvReac Type Severity Reaction Status Date / Time sulfamethoxazole (From Allergy Intermediate HIVES Verified 11/10/25 16:40 BACTRIM) trimethoprim (From BACTRIM) Allergy Intermediate HIVES Verified 11/10/25 16:40 metoclopramide AdvReac Severe akathesia Verified 11/10/25 16:40 ethinyl estradiol (From AdvReac Intermediate TIA Verified 11/10/25 16:40 ORTHO TRI-CYCLEN (28)) naproxen (NAPROXEN) AdvReac Intermediate GI UPSET Verified 11/10/25 16:40 norgestimate (From ORTHO AdvReac Intermediate TIA Verified 11/10/25 16:40 TRI-CYCLEN (28)) [facility] Social History Social History Alcohol intake: unknown Advance Directives: No Advance Directives Information Provided: Yes Physical Exam 2 Exam: Exam: GENERAL: Well appearing. No apparent distress. Alert. HEAD/NECK: Normal to inspection. Neck supple. No cervical lymphadenopathy. EYES: Normal to inspection. Sclera non-icteric. ENMT: External nose normal. RESPIRATORY: Respiratory effort normal. Lungs clear to auscultation bilaterally. CARDIOVASCULAR: Regular rate. Normal rhythm. No murmur. No rubs. GI: Soft, non-tender, non-distended. No rebound or guarding. No masses palpable. No hepatosplenomegaly. SKIN: No jaundice. NEUROLOGICAL: Alert. PSYCHIATRIC: Alert. Appearance appropriate for situation. Attitude cooperative. OTHER: Comprehensive Neuro exam: Face symmetric, tongue midline, strong symmetric eye closure, pupils symmetric and reactive to light, intact sensation to the face throughout, intact strong face deviation and shoulder shrug. Sensation intact to light touch throughout * 5 out of 5 strength in bilateral upper extremities, 5 and 5 strength in lower extremities Vital Signs: Vital Signs: Last Vital Signs Temp 101.4 F H 11/10/25 19:58 Pulse 97 11/10/25 19:58 Resp 16 11/10/25 19:58 BP 121/70 11/10/25 19:58 Pulse Ox 98 11/10/25 19:58 O2 Del Method Room Air 11/10/25 19:58 BMI result Body Mass Index 28.7 Course Reevaluation(s) Reevaluation #1: Patient developed heartburn after taking oral potassium supplementation I will give Maalox and famotidine Medications Administered Discontinued Medications Generic Name Dose Route Start Last Admin Trade Name Freq PRN Reason Stop Dose Admin Al Hydroxide/Mg Hydroxide 30 ml 11/10/25 17:51 11/10/25 18:04 Magnesium Hydrox/Alum Hydrox 30 Ml Oral.Susp PO 11/10/25 17:52 30 ml ONCE ONE Administration Famotidine 20 mg 11/10/25 17:51 11/10/25 18:04 Famotidine/Pf 20 Mg/2 Ml Vial IVPUSH 11/10/25 17:52 20 mg ONCE ONE Administration Potassium Chloride/Sodium Chloride 20 meq in 1,000 mls @ 500 mls/hr 11/10/25 16:30 11/10/25 18:44 Kcl 20 Meq In 0.45% Sod IVCONT 11/10/25 18:29 Infused .Q2H JIMMY Infusion Magnesium Sulfate 2 gm in 50 mls @ 150 mls/hr 11/10/25 17:32 11/10/25 18:46 Magnesium Sulfate/H2o IV 11/10/25 17:51 Infused ONCE ONE Infusion Iohexol 100 ml 11/10/25 16:11 11/10/25 16:11 Iohexol 350 Mg/Ml 100 Ml Infus..Btl IV 11/10/25 16:12 70 ml ONCE ONE Administration Ondansetron HCl 4 mg 11/10/25 17:51 11/10/25 18:04 Ondansetron Hcl 4 Mg/2 Ml Vial IVPUSH 11/10/25 17:52 4 mg ONCE ONE Administration Potassium Chloride 40 meq 11/10/25 16:26 11/10/25 16:33 Potassium Chloride Packet 20 Meq Packet PO 11/10/25 16:27 40 meq ONCE ONE Administration Medical Decision Making Medical Decision Making MDM Narrative: Medical Decision Makin-year-old feed male initially her past medical history was unable to be obtained however after this scan the patient returned back to normal baseline. She was able to converse. As above history appears to reveal several intermittent episodes similar presentation to today with altered mentation paresthesias sometimes muscular spasm. She has had EEGs without epileptiform activity found. in the past she previously saw a neurologist that thought this was possibly related to oral contraceptive/hormonal supplementation she has not been on this in years. Nonfocal neuro exam on repeat. Doubt CVA Draws given the patient's history Could be related to the electrolyte derangement or atypical seizure or atypical migraine ___ K returned 2.9 likely explaining her symptoms. Patient has comfortable. We will replete potassium. Magnesium slightly low we will get this over 2 with repletion. Preliminary Favored Differential Diagnosis: Electrolyte derangement, CVA, TIA, atypical migraine, convulsion or seizure, psychogenic episode among additional considered etiologies Testing Interpreted Independently: ECG sinus rhythm no ischemic changes Radiology or Lab testing Results Reviewed: ?See below for details Consults: ?See below for details Independent Historians/External Chart Reviews: ?See below for details Social Determinants of Health Impacting MDM/Planning: ?See below for details Lab Data 11/10/25 15:51 11/10/25 19:07 Labs: Lab Results 11/10/25 11/10/25 11/10/25 Range/Units 15:51 15:55 15:56 WBC 6.2 (4.8-10.8) X10*3/uL RBC 4.37 (4.20-5.50) X10*6/uL Hgb 12.5 (12.0-16.0) g/dl Hct 36.3 L (37.0-47.0) % MCV 83.1 (80.0-98.0) fL MCH 28.6 (27.0-33.0) pg MCHC 34.4 (31.0-35.0) g/dl RDW 12.5 (11.0-16.0) % Plt Count 202 (160-400) X10*3/uL MPV 10.3 (9.4-12.3) fL Immature Gran % (Auto) 0.3 (0.0-0.4) % Neut % (Auto) 81.6 H (45-73) % Lymph % (Auto) 7.9 L (20-40) % [place]end[place] % (Auto) 10.0 (2-11) % Eos % (Auto) 0.0 (0-4) % Baso % (Auto) 0.2 (0-2) % Lymph # (Auto) 0.5 L (1.2-4.9) X10*3/uL [place] # (Auto) 0.6 (0.1-1.2) X10*3/uL Eos # (Auto) 0.0 (0.0-0.4) X10*3/uL Baso # (Auto) 0.0 (0.0-0.2) X10*3/uL Abs Immat Gran (auto) 0.02 (0.00-0.03) X10*3/uL Absolute Neuts (auto) 5.0 (2.0-8.3) x10*3/uL Absolute Nucleated RBC 0.000 (0.0-0.012) X10*3/uL Nucleated RBC % (auto) 0.0 (0.0-0.2) /100WBC PT 11.9 (11.2-13.5) SEC Whole Blood PT 12.0 (11.1-13.5) sec INR 1.0 (0.9-1.1) Whole Blood INR 1.0 (0.9-1.1) APTT 29.6 (26.7-34.1) SEC Sodium 137 (135-145) mmol/L Potassium 2.9 L* (3.3-5.1) mmol/L Chloride 105 (96-108) mmol/L Carbon Dioxide 19 L (22-29) mmol/L Anion Gap 16 (12-20) BUN 6 L (9-16) mg/dL Creatinine 0.64 (0.5-1.4) mg/dL Estim Creat Clear Calc 119.5 Estimated GFR > 60 POC Glucose 134 H (60-115) mg/dL Random Glucose 140 H (60-115) mg/dL Calcium 8.7 D (8.4-10.2) mg/dL Magnesium 1.8 (1.6-2.6) mg/dL Troponin I High Sens < 2.7 (<3.5-17.0) ng/L Triglycerides 80 (<150) mg/dL Cholesterol 168 (<200) mg/dL LDL Cholesterol, Calc 106 H (<100) mg/dL HDL Cholesterol 46 (>40) mg/dL Urine Opiates Screen (Not Detect) Ur Buprenorphine Scrn (Not Detect) ng/mL Ur Oxycodone Screen (Not Detect) ng/mL Urine Methadone Screen (Not Detect) ng/mL Urine Fentanyl Screen (Not Detect) Ur Barbiturates Screen (Not Detect) Ur Phencyclidine Scrn (Not Detect) Ur Amphetamines Screen (Not Detect) U Benzodiazepines Scrn (Not Detect) Urine Cocaine Screen (Not Detect) U Marijuana (THC) Screen (Not Detect) Ethyl Alcohol < 10 mg/dL 11/10/25 11/10/25 Range/Units 16:51 19:07 WBC (4.8-10.8) X10*3/uL RBC (4.20-5.50) X10*6/uL Hgb (12.0-16.0) g/dl Hct (37.0-47.0) % MCV (80.0-98.0) fL MCH (27.0-33.0) pg MCHC (31.0-35.0) g/dl RDW (11.0-16.0) % Plt Count (160-400) X10*3/uL MPV (9.4-12.3) fL Immature Gran % (Auto) (0.0-0.4) % Neut % (Auto) (45-73) % Lymph % (Auto) (20-40) % Pendleton % (Auto) (2-11) % Eos % (Auto) (0-4) % Baso % (Auto) (0-2) % Lymph # (Auto) (1.2-4.9) X10*3/uL [place] # (Auto) (0.1-1.2) X10*3/uL Eos # (Auto) (0.0-0.4) X10*3/uL Baso # (Auto) (0.0-0.2) X10*3/uL Abs Immat Gran (auto) (0.00-0.03) X10*3/uL Absolute Neuts (auto) (2.0-8.3) x10*3/uL Absolute Nucleated RBC (0.0-0.012) X10*3/uL Nucleated RBC % (auto) (0.0-0.2) /100WBC PT (11.2-13.5) SEC Whole Blood PT (11.1-13.5) sec INR (0.9-1.1) Whole Blood INR (0.9-1.1) APTT (26.7-34.1) SEC Sodium (135-145) mmol/L Potassium 3.5 D (3.3-5.1) mmol/L Chloride (96-108) mmol/L Carbon Dioxide (22-29) mmol/L Anion Gap (12-20) BUN (9-16) mg/dL Creatinine (0.5-1.4) mg/dL Estim Creat Clear Calc Estimated GFR POC Glucose (60-115) mg/dL Random Glucose (60-115) mg/dL Calcium (8.4-10.2) mg/dL Magnesium (1.6-2.6) mg/dL Troponin I High Sens (<3.5-17.0) ng/L Triglycerides (<150) mg/dL Cholesterol (<200) mg/dL LDL Cholesterol, Calc (<100) mg/dL HDL Cholesterol (>40) mg/dL Urine Opiates Screen Not Detected (Not Detect) Ur Buprenorphine Scrn Not Detected (Not Detect) ng/mL Ur Oxycodone Screen Not Detected (Not Detect) ng/mL Urine Methadone Screen Not Detected (Not Detect) ng/mL Urine Fentanyl Screen Not Detected (Not Detect) Ur Barbiturates Screen Not Detected (Not Detect) Ur Phencyclidine Scrn Not Detected (Not Detect) Ur Amphetamines Screen Not Detected (Not Detect) U Benzodiazepines Scrn Not Detected (Not Detect) Urine Cocaine Screen Not Detected (Not Detect) U Marijuana (THC) Screen Not Detected (Not Detect) Ethyl Alcohol mg/dL Discharge Plan Discharge Clinical Impression: Left thyroid nodule, Acute hypokalemia, Encephalopathy acute Patient Disposition: Home, Self-Care Instructions: Hypokalemia (ED), Thyroid Nodules (ED), Encephalopathy (DC) Additional Instructions: When you arrived we thought you may has been having a stroke and were unable to get full history. CT of the brain with angiography of the brain vessels was done without any acute findings other than a nonemergent thyroid nodule that can be followed up outpatient with ultrasound tell your primary doctor about this. While in the ER we found that your potassium was quite low 2.9 it should be over 3.5. This could be secondary to decreased oral intake or vomiting. We repleted this intravenously and orally while in the emergency department. We found no indication to admit to the hospital but is very important he follow up about the thyroid nodule as well as these intermittent neurologic episodes as you may need further testing. Call our Neurology Clinic Prescriptions: No Action oxycodone 5 mg tablet 5 mg PO Q6H PRN (Reason: pain) Qty: 10 0RF Rx Instructions: Partial Fill upon patient request. Referrals: [facility] [Provider Group, Neurology] Interventions: ED Discharge Assessment Last Done: 11/10/25 19:58 Discharge Date/Time: 11/10/25 20:02 Print Language: Greenlandic
[2025-11-10 16:00] LABS: Prothrombin Time Whole Bld POC 12.0 sec (11.1-13.5); ~PT, ~INR - Anti Coag Clinic 1.0 (0.9-1.1)
[2025-11-10 16:02] VITALS: BP 118/60; BP 160/87; PULSE 101; PULSE 92; RESP 16; TEMP 37.6; O2SAT 100; O2SAT 99; BMI 28.7
[2025-11-10 16:02] LABS: Glucose, Whole Blood 134 mg/dL (60-115)
[2025-11-10 16:02] LABS: MANUAL DIFF FLAG NO
[2025-11-10 16:03] LABS: Hematocrit 36.3 % (37.0-47.0); Hemoglobin 12.5 g/dl (12.0-16.0); Imm Gran Abs Auto 0.02 X10*3/uL (0.00-0.03); Imm Gran Pct Auto 0.3 % (0.0-0.4); Lymphocytes Absolute Auto 0.5 X10*3/uL (1.2-4.9); Mean Corpuscular HGB Conc 34.4 g/dl (31.0-35.0); Mean Corpuscular Hemoglobin 28.6 pg (27.0-33.0); Mean Corpuscular Volume 83.1 fL (80.0-98.0); NRBC Abs Auto 0.000 X10*3/uL (0.0-0.012); NRBC Pct Auto 0.0 /100WBC (0.0-0.2); Platelet Count 202 X10*3/uL (160-400); Red Blood Count 4.37 X10*6/uL (4.20-5.50); White Blood Count 6.2 X10*3/uL (4.8-10.8)
[2025-11-10] MEDS: iohexoL 350 MG/ML 100 ML INFUS..BTL IV (16:11)
[2025-11-10 16:13] LABS: INTERNATIONAL NORM RATIO 1.0 (0.9-1.1); Partial Thromboplastin Time 29.6 SEC (26.7-34.1); Prothrombin Time 11.9 SEC (11.2-13.5)
[2025-11-10 16:14] LABS: Stroke Lab Use COMPLETE
[2025-11-10 16:25] LABS: Troponin-I High Sensitivity < 2.7 ng/L (<3.5-17.0)
[2025-11-10 16:27] LABS: Anion Gap 16 (12-20); Blood Urea Nitrogen 6 mg/dL (9-16); Calcium 8.7 mg/dL (8.4-10.2); Carbon Dioxide 19 mmol/L (22-29); Chloride 105 mmol/L (96-108); Cholesterol 168 mg/dL (<200); Creatinine Clr Calc Pharmacy 119.5; Estimated Glomerular Filt Rate > 60; HDL Cholesterol 46 mg/dL (>40); Potassium 2.9 mmol/L (3.3-5.1); Sodium 137 mmol/L (135-145); Triglycerides 80 mg/dL (<150)
[2025-11-10] MEDS: Potassium Chloride Packet 20 MEQ PACKET 40 MEQ PO (16:33)
[2025-11-10] MEDS: KCl 20 mEq in 0.45% Sod 20 MEQ/1,000 ML IV.SOLN 500 MEQ IVCONT (16:42)
[2025-11-10 16:49] LABS: Magnesium 1.8 mg/dL (1.6-2.6)
[2025-11-10 17:09] LABS: Cannabinoid Screen Urine Not Detected (Not Detect)
[2025-11-10] MEDS: Magnesium Hydrox/Alum Hydrox 30 ML ORAL.SUSP PO (18:04)
[2025-11-10] MEDS: Magnesium Sulfate/H2O 2 GM/50 ML PIGGYBACK IV (18:04)
[2025-11-10 19:29] LABS: Potassium 3.5 mmol/L (3.3-5.1)
[2025-11-10 19:58] VITALS: BP 121/70; PULSE 97; RESP 16; TEMP 38.6; O2SAT 98
--- OUTSIDE RECORDS SUMMARY | 2025-11-10 20:55 | XMS_ITS | Encounter Summary ---
Author Organization [facility] Address [address] [facility] [address] [place] [address] Phone Care Team Providers Care Water Purification Chemist Name Role Phone PariIdris carbajal Primary Care Provider [phone] AltagraciaIdris Unavailable Reason for Referral * MRI/CAT Scan - Closed Specialty Diagnoses / Procedures Referred By Florian courtney Referred To Contact Radiology Diagnoses Unspecified fracture of right wrist and hand, subsequent encounter for fracture with routine healing Procedures MRI Wrist (Right) Ne Martin PA [address] [place] [address] Phone: tel: fax: Referral ID Status Reason Start Date Expiration Date Visits Re quested Visits Authorized [id number] Closed 04/09/2023 04/08/2024 1 1 Encounter Details Date Type Department Care Team (Latest Contact Info) Description 04/09/2023 Transcribe Orders Virtual Department [address] [place] [address] Ne Martin PA [address] [facility] [place] [address] Unspecified fracture of right wrist and hand, subsequent encounter for fracture with routine healing (Primary Dx) Social History Tobacco Use Types Packs/Day Years Used Date Smoking Tobacco: Never Smokeless Tobacco: Never Alcohol Use Standard Drinks/Week Comments No 0 (1 standard drink = 0.6 oz pur e alcohol) Education Answer Date Recorded Are you interested in more education? Not on jann e 03/22/2023 Are you concerned about learning? Not on file 03/22/2023 No 03/22/2023 No 03/22/2023 Comments Unknown Sex and Gender Information Value Date Recorded Sex Assigned at Female 04/13/2018 7:16 PM EDT Legal Sex Female 9:16 PM EDT Gender Identity Female 04/13/2018 7:16 PM EDT Sexual Orientation Not on file documented as of this encounter Plan of Treatment Not on file documented as of this encounter Results * MRI WRIST WITHOUT CONTRAST (RIGHT) (05/30/2023 5:20 PM EDT) Anatomical Region Laterality Modality Wrist Right Magnetic Resonan ce 06/04/2023 5:20 PM EDT Impressions 06/04/2023 5:28 PM EDT 1. Small focal tear of radial attachment of TFCC with small adjacent effusion within distal radial ulnar joint. 2. 4.0 x 5.1 x 7.8 mm ganglion volar radial side of the wrist close to distal radius. 3. Otherwise normal MRI of the right wrist. Narrative 06/04/2023 5:28 PM EDT MRI WRIST WITHOUT CONTRAST (RIGHT) History: Right wrist pain persisting since injury sustained preceding March when patient noted a sensation of popping in the right hand/wrist. Work as a toscano. TECHNIQUE: Multi-sequence, multi-planar MRI of the wrist without intravenous contrast. COMPARISON: No prior wrist imaging available. FINDINGS: Ulnar Wrist: Focal gap within the TFCC radial attachment. Small effusion within the distal radial ulnar joint. TFCC otherwise normal. Other Tendons: Normal. Extensor compartments 1-5 are intact. Flexor tendons are intact. Ligaments: Normal. Intact intrinsic and extrinsic ligaments. Normal carpal alignment. Nerves: Normal. Median and ulnar nerves are normal in size, location, and signal intensity. Bone: No fracture, osteonecrosis, or focal lesion. Joints: Lobular/septated 4.0 x 5.1 x 7.8 mm ganglion volar radial side of the wrist. No other discrete soft tissue collection identified. Normal alignment maintained about the distal radius, ulna and carpus as well as metacarpal bases. Procedure Note Simeon Jones MD - 06/04/2023 MRI WRIST WITHOUT CONTRAST (RIGHT) History: Right wrist pain persisting since injury sustained preceding patient noted a sensation of popping in the right hand/wrist. Work asa toscano. TECHNIQUE: Multi-sequence, multi-planar MRI of the wrist withoutintravenous contrast. COMPARISON: No prior wrist imaging available. FINDINGS: Ulnar Wrist: Focal gap within the TFCC radial attachment. Small effusionwithin the distal radial ulnar joint. TFCC otherwise normal. Other Tendons: Normal. Extensor compartments 1-5 are intact. Flexortendons are intact. Ligaments: Normal. Intact intrinsic and extrinsic ligaments. Normal carpalalignment. Nerves: Normal. Median and ulnar nerves are normal in size, location, andsignal intensity. Bone: No fracture, osteonecrosis, or focal lesion. Joints: Lobular/septated 4.0 x 5.1 x 7.8 mm ganglion volar radial side ofthe wrist. No other discrete soft tissue collection identified. Normalalignment maintained about the distal radius, ulna and carpus as well asmetacarpal bases. IMPRESSION: 1. Small focal tear of radial attachment of TFCC with small adjacenteffusion within distal radial ulnar joint. 2. 4.0 x 5.1 x 7.8 mm ganglion volar radial side of the wrist close todistal radius. 3. Otherwise normal MRI of the right wrist. Ne [facility] MR EXTREMITY Final Resu lt documented in this encounter Visit Diagnoses Diagnosis Unspecified fracture of right wrist and hand, subsequent encounter for fracture with routine healing- Primary Unspecified fracture of right wrist and hand, subsequent encounter for fracture with routine healing documented in this encounter Care Teams Water Purification Chemist Relationship Specialty Start Date End Date Idris Frias DO PCP - General 09/12/17 Idris Frias DO [address] [place] [address] [email or web address] Insurance Assigned Provider 02/29/24 documented as of this encounter Additional Source Comments The information contained in this document represents components of the legal health record. It is not the complete legal health record.[facility]
--- OUTSIDE RECORDS SUMMARY | 2025-11-10 20:55 | XMS_ITS | Data Portability ---
Author Organization [facility] [address] Address [address] [place] [address] Care Team Providers Care Tip Cutter Name Role Phone [facility] Primary Care Provider Assessment Encounter Date Assessment Date Assessment LastModified by Organization Details LastModified Time 12/25/2022 12/25/2022 Intractable headache x 2.5 weeks. Described as severe. +h/o TIA. To [place] ED. Expect Call placed. [email or web address] Not available 12/25/2022 09:49:18 Plan of Treatment Reminders Order Date Submit Date Provider Last Modified By Organization Details Last Modified Time Details Appointments None record ed. Lab None record ed. Referral None record ed. Procedures None record ed. Surgeries None record ed. Imaging None record ed. Medication Orders None record ed. Patient TargetsNo targets recorded. Patient Instructions Encounter Date Encounter Id Patient Instructions Last Modified By Organization Details Last Modified Time 12/25/2022 [id number] headache: care instructions Not available 12/25/2022 09:41:45 Please proceed directly to [place] ED as discussed. An expect call has been placed. Not available 12/25/2022 09:41:44 Reason for Referral None Reported. Problems Name Problem SNOMED Code Status Onset Date Resolution Date Notes Provider Name and Address Organization Details Recorded Time Transient cerebral ischemia 856896899 Active 023 h/o x4 in 20s [facility] 09:10:10 Problem Notes None recorded. Procedures Surgical History Date Name Laterality Status Provider Name and Address Organization Details Recorded Time tonsillectomy completed JORGE LUIS LUPICA PA - [facility] 12/25/2022 09:11:07 adenoid excision completed JORGE LUIS BOOKER PA - [facility] 12/25/2022 09:11:15 cholecystectomy completed JORGE LUIS BOOKER PA - [facility] 12/25/2022 09:11:22 procedure on knee completed JORGE LUIS Gaona PA - [facility] 12/25/2022 09:12:25 delivery completed JORGE LUIS Gaona PA - [facility] 12/25/2022 09:12:33 Imaging Results None recorded. Procedure Notes None recorded. Medical Equipment None Reported. Allergies Allergen ID Allergen Name Allergen Category Reaction Reaction Severity Criticality Documentation Date Start Date Code Code System Note Provider Name and Address Organization Details Recorded Time 348612 Bactrim medicatio n dyspnea hives Not available Not available Not available 12/25/2022 40374 9 RxNorm JORGE LUIS knowles, PA - [facility] 09:09:28 Medications Name Sig Start Date Stop Date Status Note LastModified by Organization Details LastModified Time fluconazole 150 mg tablet 2022 completed Not Available Not Available Not Available zolpidem 10 mg tablet active Not Available Not Available No t Available Vitals Date Recorded Body height Body mass index (BMI) Body weight Body temperature Oxygen saturation Heart rate Respiratory rate Systolic And Diastolic Provider Name and Address Organization Details Last Updated DateTime 3 162.56 cm 27.5 kg/m2 61652.7 8 g 97 [degF] 100 % 77 /min 16 /min 116/78 mm[Hg] JORGE LUIS BOOKER PA - [facility] 09:15:45 Social History Question Answer Notes LastModified by Organizat ion Details LastModified Time Tobacco Smoking Status Never Smoker JORGE LUIS knowles, PA - [facility] 12/25/2022 09:10:51 Have You Recently Traveled Abroad? No [email or web address] Information not available 12/25/2022 Sex: Unknown Functional Status Question Answer Note LastModified by Organizat ion Details LastModified Time Do you use any illicit or recreational drugs? No [email or web address] Information not available 12/25/2022 Do you or have you ever used any other forms of tobacco or nicotine? No [email or web address] Information not available 12/25/2022 What is your level of alcohol consumption? None [email or web address] Information not available 12/25/2022 Mental Status None recorded. Family History Relationship Description Onset Age of this Age Resolved Age Notes LastModified by Organization Details LastModified Time Father No current problems or disability [email or web address] Not available 12/25 09:10:36 Mother No current problems or disability [email or web address] Not available 12/25 09:10:36 Medical History No medical history recorded. Gynecological HistoryNo gynecological history recorded. Obstetrics History GPAL:G 0 P 0 0 0 0 Past Encounters Encounter ID Performer Location Encounter Start Date Encounter Closed Date Diagnosis/Indication Diagnosis SNOMED-CT Code Diagnosis ICD10 Code Diagnosis IMO Codes Diagnosis Note [id number] [address] [place] [address] 07/16/2019 13:20:46 07/16/2019 14:51:45 [id number] [address] [place] [address] 05/12/2022 16:51:20 05/12/2022 17:54:53 [id number] [address] [place] [address] 06/28/2019 15:45:07 06/28/2019 16:28:33 [id number] Radha Scott DO [address] [place] [address] 12/25/2022 08:10:23 12/25/2022 09:43:56 Headache 50204871 R51.9 Health Concerns Section Related Observation LastModified by Organization Detai ls LastModified Time None Recorded Concern Status LastModified by Organization Details LastModified Time None Recorded Advance Directives Directive None Recorded Payers Insurance Date Sequence Insurance Name Policy Number Policy De Oliveira Covered Member ID De Oliveira Member ID Guarantor Name 12/25/2022 1 [facility] [id number] Christopher Kerr [id number] Vanesa Kerr Notes Date Note Type Note Provider Name and Address Organization Details Recorded Time 12/25/2022 text/html Eye problemsRepo rted by Patient Headache UCReported by Patient Constant headache x 2.5 weeks, developed eye pain 2 weeks ago. Headache is 10/10 in the AM, affects functioning as the day progresses. Accompanied by blurry vision and light sensitivity, both increased at the end of day. No improvement with Excedrin, Tylenol, IBU, lubricating eye drops.Denies URI symptoms. 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 No current use of hormones. Had PCP appointment yesterday, was cancelled, rescheduled for next week, advised to seek ED evaluation. Presents to UC due to concern of ED wait times. Radha Scott, DO [address] [place], [address], PA - [facility] 12/25/2022 09:49:56 OBGyn Episode No OBEpisode recorded.
--- OUTSIDE RECORDS SUMMARY | 2025-11-10 20:55 | XMS_ITS | Encounter Summary ---
Author Organization [facility] Address [address] [facility] [address] [place] [address] Phone Care Team Providers Care Chain Builder Name Role Phone Idris Frias DO Primary Care Provider Idris Frias DO Unavailable Encounter Details Date Type Department Care Team (Late st Contact Info) Description 11/26/2023 Procedure Pass [facility], Ct Scan - [address] [address] Social History Tobacco Use Types Packs/Day Years [...] Author No Risk Indicated 11/26/2023 8:27 PM Nayeli Smith RN * [place] Suicide Severity Rating Scale (Screener/Recent Self-Report) Question Answer Date of Assessment Author 1. Wish to be (Past 1 Month) No 024 8:27 PM Nayeli Smith RN 2. Non-Specific Active Suici sadie Thoughts (Past 1 Month) No 11/26/2023 8:27 PM Eden Smith RN 6. Suicidal Behavior (Lifetime) No 8:27 PM Nayeli Smith RN documented as of this encounter Plan of Treatment Not on file documented as of this encounter Visit Diagnoses Not on filedocumented in this encounter Care Teams Chain Builder Relationship Specialty Start Date End Date Idris Frias DO PCP - General 09/12/17 Idris Frias DO [address] [place] [address] Insurance Assigned Provider 02/29/24 documented as of this encounter Additional Source Comments The information contained in this document represents components of the legal health record. It is not the complete legal health record.[facility]
--- OUTSIDE RECORDS SUMMARY | 2025-11-10 20:56 | XMS_ITS | Clinical Summary ---
Author Organization [facility] Address [address] [facility] [address] [place] [address] Phone Care Team Providers Care Card Assembler Name Role Phone Idris Frias DO Primary Care Provider Idris Frias DO Unavailable Allergies Active Allergy Reactions Criticality Noted Date Comments Naproxen Hives 02/01/2017 Ortho Tri-Cyclen (21) 10/28/2019 Sulfamethoxazole-Trimethop rim 02/01/2017 Other reaction(s): hives Medications vit/iron fum/folic ac ( TABLET ORAL) Active zolpidem (AMBIEN) 10 mg tablet Take 10 mg by mouth. 0 10/20/2019 Active Family History Medical History Relation Comments Fibroids Mother Relation Status Comments Mother Alive Social History Tobacco Use Types Packs/Day Years [...] PM EDT Sexual Orientation Not on file Last Filed Vital Signs Vital Sign Reading Time Taken Comments Blood Pressure 122/76 11/27/2023 12:08 AM EST Pulse 77 11/27/2023 12:08 AM EST Temperature 36.6 C (97.9 F) 11/27/2023 12:08 AM EST Respiratory Rate 18 11/27/2023 12:08 AM EST Oxygen Saturation 100% 11/27/2023 12:08 AM EST Inhaled Oxygen Concentration - - Weight 68 kg (150 lb) 12/17/2023 11:30 AM EST Height 162.6 cm (5' 4 ) 12/17/2023 11:30 AM EST Body Mass Index 25.75 12/17/2023 11:30 AM EST Plan of Treatment Health Maintenance Due Date Last Done Comments DEPRESSION SCREENING 1996 HEPATITIS C SCREENING 2002 HIV ONE-TIME SCREENING (18-6 5 YEARS) 2002 PAP SMEAR 09/13/2020 09/13/2017 MAMMOGRAM 2024 INFLUENZA VACCINE (#1) 2025 COVID-19 VACCINE (3 2024-2 6 season) 2025 07/28/2021, 06/29/2021 SCREENING FOR DIABETES 11/26/2026 , 02/10/2021 Adult Td,Tdap Booster 05/13/2028 05/13/2018 , 05/12/2018, 05/12/2018 SMOKING STATUS SCREENING (On ce After 26 Yrs) Completed 10/28/2019 HEPATITIS A VACCINES Aged Out No long er eligible based on patient's age to complete this topic HIB VACCINES Aged Out No longer eligi ble based on patient's age to complete this topic MENINGOCOCCAL VACCINES (ACWY) Aged Out No longer eligible based on patient's age to complete this topic MENINGOCOCCAL VACCINES (B) Aged Out N o longer eligible based on patient's age to complete this topic PNEUMOCOCCAL VACCINES (0-49 years) Aged Out No longer eligible b ased on patient's age to complete this topic Medical Devices Not on file Insurance [facility] [place] [address] [facility] [employer] Care Teams Card Assembler Relationship Specialty Start Date End Date Idris Frias DO [email or web address] PCP - General 09/12/17 Idris Frias DO [address] [place] [address] [email or web address] Insurance Assigned Provider 02/29/24 Additional Source Comments The information contained in this document represents components of the legal health record. It is not the complete legal health record.[facility]
--- OUTSIDE RECORDS SUMMARY | 2025-11-10 20:56 | XMS_ITS | Encounter Summary ---
Author Organization [facility] Address [address] [address] Phone Care Team Providers Care Power Wood Sawyer Name Role Phone Idris Frias DO Primary Care Provider [phone] Idris Frias DO Unavailable Encounter Details Date Type Department Care Team (Latest Contact Info) Description 06/29/2024 Transcribe Orders Virtual Department [address] [place] [address] Nedra Madden MD [address] [place] [address] Breast screening (Primary Dx) Social History Tobacco Use Types [...] as of this encounter Plan of Treatment Scheduled Orders Name Type Priority Associated Diagnoses Orde r Schedule Mammogram Screening (Bilateral) Imaging Routine Breast screening Expected: 06/29/2024, Expires: 06/29/2026 documented as of this encounter Visit Diagnoses Diagnosis Breast screening- Primary Breast screening, unspecified documented in this encounter Care Teams Power Wood Sawyer Relationship Specialty Start Date End Date Idris Frias DO PCP - General 09/12/17 Idris Frias DO [address] [place] [address] Insurance Assigned Provider 02/29/24 documented as of this encounter Additional Source Comments The information contained in this document represents components of the legal health record. It is not the complete legal health record.[facility]
--- OUTSIDE RECORDS SUMMARY | 2025-11-10 20:56 | XMS_ITS | Data Portability ---
Author Organization [facility], Telehealth Patient Home Address [address] [place] [address] Assessment Encounter Date Assessment Date Assessment LastModified by Organization Details LastModified Time 01/15/2025 01/15/2025 Patient agreed and verbally consents to this audio and video Telehealth appt via a secure platform [email or web address] Not available 01/15/2025 11:45:32 Plan of Treatment Reminders Order Date Submit Date Provider Last Modified By Organization Details Last Modified Time Details Appointments SDV 2024 02:45P M TALITA WYATT Not available Not available Not available Lab CMP, serum or plasma 2024 025 AMARA [facility] (Centralized Electronic Ordering - All Locations), Patient Can Go To The Location Of Their Choice, 04/07/2025 08:32:02 C3 + C4 (compleme nt), serum 2024 025 [email or web address] [facility] (Centralized Electronic Ordering - All Locations), Patient Can Go To The Location Of Their Choice, 03/26/2025 10:46:23 C-reactiv e protein, quantitat traci, serum or plasma 2024 025 rtryba [facility] (Centralized Electronic Ordering - All Locations), Patient Can Go To The Location Of Their Choice, 03/26/2025 10:46:24 dsDNA Ab, serum 2024 025 rtryba [facility] (Centralized Electronic Ordering - All Locations), Patient Can Go To The Location Of Their Choice, 03/26/2025 10:46:24 ESR (erythroc yte sedimenta tion rate), blood 2024 rtryba [facility] (Centralized Electronic Ordering - All Locations), Patient Can Go To The Location Of Their Choice, 03/26/2025 10:46:24 DEANNA + rf (antinucl ear antibodie s + rheumatoi d factor), quantitat traci, serum 2024 [email or web address] [facility] (Centralized Electronic Ordering - All Locations), Patient Can Go To The Location Of Their Choice, 03/26/2025 10:46:24 ccp (cyclic citrullin ated peptide) iga+igg, serum 2024 rtryba [facility] (Centralized Electronic Ordering - All Locations), Patient Can Go To The Location Of Their Choice, 03/26/2025 10:46:23 goyal Ab, serum 2024 rtryba [facility] (Centralized Electronic Ordering - All Locations), Patient Can Go To The Location Of Their Choice, 03/26/2025 10:46:24 sjogren antibody panel (ssa, ssb, ro, la), serum 2024 rtryba [facility] (Centralized Electronic Ordering - All Locations), Patient Can Go To The Location Of Their Choice, 03/26/2025 10:46:23 CK (creatine kinase), total, serum 2024 rtryba [facility] (Centralized Electronic Ordering - All Locations), Patient Can Go To The Location Of Their Choice, 03/26/2025 10:46:23 magnesium , serum or plasma 2024 rtryba [facility] (Centralized Electronic Ordering - All Locations), Patient Can Go To The Location Of Their Choice, 03/26/2025 10:46:23 phosphoru s, serum or plasma 2024 rtryba [facility] (Centralized Electronic Ordering - All Locations), Patient Can Go To The Location Of Their Choice, 03/26/2025 10:46:24 PTH (parathyr oid hormone), intact + calcium, serum or plasma 2024 rtryba [facility] (Centralized Electronic Ordering - All Locations), Patient Can Go To The Location Of Their Choice, [address] 03/26/2025 10:46:24 zinc, serum or plasma 2024 rtryba [facility] (Centralized Electronic Ordering - All Locations), Patient Can Go To The Location Of Their Choice, 03/26/2025 10:46:23 lyme disease igg+igm, serum, reflex western blot 2024 rtryba [facility] (Centralized Electronic Ordering - All Locations), Patient Can Go To The Location Of Their Choice, 03/26/2025 10:46:23 anaplasma phagocyto philum + ehrlichia chaffeens is DNA panel, blood 2024 rtryba [facility] (Centralized Electronic Ordering - All Locations), Patient Can Go To The Location Of Their Choice, 03/26/2025 10:46:23 Referral None recorded. Procedures None recorded. Surgeries None recorded. Imaging MRI, lumbar spine, w/o contrast - Not Required Procedure codes: 16404 Call Reference #: [id number] Resolutio n: Completed on at 10:07 am. Call ref #[id number]. complicat ion post epidural causing residual nerve pain and damage 2023 [email or web address] [facility] [address], [address], 09/30/2024 08:26:11 electromy ogram + nerve conductio n study - left leg, complicat ion post-epid ural causing nerve damage 2023 [email or web address] Ward MD, [address] [place] [address], [address], 10/06/2024 08:27:46 Medication Orders fluconazo le 150 mg tablet 2024 AMARA [facility] [address] [place], [address], 08/02/2025 08:28:00 ondansetr on 8 mg disintegr ating tablet 2024 [facility] [address] [place], [address], 05/09/2025 21:30:21 prednison e 10 mg tablet 2024 025 [facility], [address] [place], [address], 02/03/2025 11:57:32 levofloxa zoë 500 mg tablet 2024 025 [facility], [address] [place], [address], 02/03/2025 11:57:17 codeine 10 mg-guaife nesin 100 mg/5 mL oral liquid 2024 025 [facility], [address] [place], [address], 02/03/2025 11:57:14 Patient TargetsNo targets recorded. Patient InstructionsNo instructions recorded. Reason for Referral None Reported. Results Created Date Observation Date Name Description Value Unit Range Abnormal Flag Note LastModifiedBy Organization Detail LastModifiedTime 10/05/20 24 10/02/2024 MRI, lumba r spine , w/o contr ast No observ ation record ed. [email or web address] [facility] [place] [address] [address], [place], [address], 10/06/2024 11:35:36 10/09/20 24 10/08/2024 elect romyo gram + nerve condu ction study No observ ation record ed. [email or web address] [facility] [address] [facility] [address], [place], [address], 10/09/2024 10:41:00 11/20/20 24 11/20/2024 XR, sacru m + coccy x No observ ation record ed. [email or web address] [facility] (Medical Records) [address] [place], [address], 11/20/2024 09:51:09 12/10/19 25 12/09/2024 MRI, lumba r spine , w/o contr ast No observ ation record ed. [facility] [address], [address], 12/10/2024 19:47:45 12/10/19 25 12/09/2024 MRI, sacru m, w/o contr ast No observ ation record ed. [facility] [address], [address], 12/10/2024 19:43:23 09/05/20 25 09/05/2025 XR, chest , 2 view No observ ation record ed. [facility] [address] [place], [address], 09/07/2025 08:46:32 11/10/20 25 11/10/2025 CT, head + brain , w/o contr ast No observ ation record ed. [facility] (Medical Records) [address] [place], [address], 11/10/2025 16:50:23 Result Notes None recorded. Problems Name Problem SNOMED Code Status Onset Date Resolution Date Notes Provider Name and Address Organization Details Recorded Time Transien t cerebral ischemia 497336376 Active 2017,2007 , Not Available [facility] 4 06:14:14 Infectio us mononucl eosis 684467687 Active 2017,1998 Not Available [facility] 4 06:14:14 Fracture of bone 636675507 Active 2017 wrist, ankle Not Available [facility] 4 06:14:14 Irritabl e bowel syndrome 18783742 Active 2017 Vs. Mild crohns Not Available [facility] 4 06:14:14 Polyp of colon 00550487 Active 2017 Not Available [facility] 4 06:14:15 Disorder of knee 455926583 Active 2017 recurrent knee dislocati ons 2110-7266 Not Available [facility] 4 06:14:14 Cluster headache 734400037 Active 2017 Not Available [facility] 4 06:14:14 Cyst of ovary 79679983 Active 2017 Not Available [facility] 4 06:14:15 Vertigo 227857332 Active 2017 Not Available [facility] 4 06:14:15 Insomnia 407889975 Active 2021 Not Available [facility] 4 06:14:14 Abdomina l pain 98711872 Active 2022 Not Available [facility] 4 06:14:14 COVID-19 539738555 Active 2022 Not Available [facility] 4 06:14:15 Nausea and vomiting 80929860 Active 2022 Not Available [facility] 4 06:14:14 Pneumoni a 225956748 Active 2022 Not Available [facility] 4 06:14:14 Pneumoni a caused by SARS-CoV -2 96992104575 7826096 Active 2022 Not Available [facility] 4 06:14:15 Dyspnea 623711461 Active 2022 Not Available [facility] 4 06:14:14 Fracture at wrist and/or hand level 299912633 Active 2022 Not Available [facility] 4 06:14:14 Ganglion cyst of right wrist 30192077650 9109 Active 2022 Not Available [facility] 4 06:14:14 Acute pharyngi tis 581153290 Active 2022 Not Available [facility] 4 06:14:14 Acute urinary tract infectio n 449736458 Active 2022 Not Available [facility] 4 06:14:15 Cervico- occipita l neuralgi a 37261979 Active 2022 Not Available [facility] 4 06:14:15 Headache 24904157 Active 2023 Not Available [facility] 4 06:14:14 Migraine 16036054 Active 2023 Not Available [facility] 4 06:14:14 Numbness of face 096568740 Active 2023 TALITA WYATT [address] [place], [address], [facility] 4 09:18:14 Cervical radiculo pieter 33858689 Active 2023 TALITA WYATT [address] [place], [address], [facility] 4 08:36:12 Gastroes ophageal reflux disease 574592888 Active 2023 TALITA WYATT [address] [place], [address], [facility] 4 12:09:22 Restless legs syndrome 99098546 Active 2023 TALITA WYATT [address] [place], [address], [facility] 4 09:56:39 Pain in left lower limb 715181011 Active 2023 TALITA WYATT [address] [place], [address], [facility] 4 09:56:55 Lumbar radiculo pieter 519271581 Active 2023 TALITA WYATT [address] [place], [address], [facility] 4 09:57:13 Fracture of sacrum 680871143 Active 2023 TALITA WYATT [address] [place], [address], [facility] 4 15:53:42 Chronic sinusiti s 42465899 Active 2024 TALITA WYATT [address] [place], [address], [facility] 5 16:25:05 Systemic lupus erythema tosus 51330947 Active 2024 TALITA WYATT [address] [place], [address], [facility] 5 10:38:51 Muscle pain 43203857 Active 2024 TALITA WYATT [address] [place], [address], [facility] 5 10:43:52 Bronchit is 37183832 Active 2024 TALITA WYATT [address] [place], [address], [facility] 5 11:17:50 Acute right otitis media 863017393 Active 2024 TALITA WYATT [address] [place], [address], [facility] 5 08:47:30 Problem Notes None recorded. Procedures Surgical History Date Name Laterality Status Provider Name and Address Organization Details Recorded Time 11/25/19 01 Lat retinacular release open completed [facility] 02/25/2018 08:38:49 Cholecystectomy completed [facility] 02/25/2018 08:30:07 Tonsillectomy completed [facility] 02/25/2018 08:36:18 Adenoid Surgery completed [facility] 02/25/2018 08:36:50 Knee Surgery completed [facility] 02/25/2018 08:40:13 Imaging Results None recorded. Procedure Notes None recorded. Medical Equipment None Reported. Allergies Allergen ID Allergen Name Allergen Category Reaction Reaction Severity Criticality Documentation Date Start Date Code Code System Note Provider Name and Address Organization Details Recorded Time 16811 sulfameth oxazole / trimethop rim medicatio n hives Not available Not available 10/25/20251999 28899 RxNorm Not Available [facility] [employer] - prod 5 07:15:23 18306 tramadol medicatio n Not available Not available Not available 10/25/20252024 22230 RxNorm Not Available [facility] - prod 5 07:15:23 6452 Toradol medicatio n Not available Not available Not available 01/23/2023 64104 RxNorm anxie ty; sever e anxie ty TALITA WYATT [address] [place] [address], [address] [place] [address] Internal [facility] 3 10:34:53 765 Ortho Tri-Cycle n (28) medicatio n Not available Not available Not available 02/25/2018 Ilana knowles [facility] 8 08:28:30 766 naproxen medicatio n Not available Not available Not available 02/25/2018 7258 RxNorm Ilana knowles [facility] Internal [facility] 8 08:28:39 767 Bactrim medicatio n Not available Not available Not available 02/25/2018 05581 9 RxNorm Ilana knowles [facility] 8 08:28:47 Medications Name Sig Start Date Stop Date Status Note LastModified by Organization Details LastModified Time amoxicillin 500 mg capsule 01/23 completed Not Available Not Available Not Available prednisone 10 mg tablet 5 tabs x 2 days4 tabs x 2 days3 tabs x 2 fays2 tabs x 2 days1 tab x 2 days 02/03 completed Not Available Not Available Not Available doxycycline hyclate 100 mg capsule Take 1 capsule twice a day by oral route for 10 days. 11/13 completed Not Available Not Available Not Available ketoconazol e 2 % shampoo APPLY TO THE AFFECTED AREA(S), LATHER, LEAVE IN PLACE FOR 5 MINUTES, AND THEN RINSE OFF WITH WATER BY TOPICAL ROUTE ONCE DAILY 09/28 completed Not Available Not Available Not Available Iron (ferrous sulfate) 325 mg (65 mg iron) tablet Take 1 tablet every day by oral route. 09/28 completed Not Available Not Available Not Available ibuprofen 800 mg tablet 07/17 completed Not Available Not Available Not Available fluconazole 150 mg tablet Take 1 tablet every day by oral route for 7 days. 2024 active Not Available Not Available Not Avai lable ondansetron HCl 8 mg tablet 01/11 completed Not Available Not Available Not Available prednisone 20 mg tablet Take 1 tablet every day by oral route for 7 days. 11/26 completed Not Available Not Available Not Available estradiol 0.1 mg/24 hr semiweekly transdermal patch 01/11 completed Not Available Not Available Not Available Zithromax Z-Wilfredo 250 mg tablet TAKE 2 TABLETS (500 MG) BY ORAL ROUTE ONCE DAILY FOR 1 DAY THEN 1 TABLET (250 MG) BY ORAL ROUTE ONCE DAILY FOR 4 DAYS 2024 active Not Available Not Available Not Avai lable sumatriptan 50 mg tablet TAKE ONE TABLET FOR HEADACHE (SEVERE); MAY REPEAT AFTER 1 HOUR; MAX DOSE OF 200 MG 09/28 completed Not Available Not Available Not Available topiramate 25 mg tablet Take 1 tablet every day by oral route for 30 days. 09/28 completed Not Available Not Available Not Available ciprofloxac in 500 mg tablet Take 1 tablet every 12 hours by oral route for 7 days. 11/13 completed Not Available Not Available Not Available tramadol 50 mg tablet Take 1 tablet every 6 hours by oral route as needed for 14 days. 02/03 completed Not Available Not Available Not Available ondansetron 8 mg disintegrat ing tablet Place 1 tablet twice a day by transling ual route as needed for 14 days. 2024 active Not Available Not Available Not Avai lable oxycodone-a cetaminophe n 5 mg-325 mg tablet 01/11 completed Not Available Not Available Not Available amoxicillin 875 mg tablet Take 1 tablet every 12 hours by oral route for 7 days. 11/13 completed Not Available Not Available Not Available triamcinolo ne acetonide 0.025 % topical cream APPLY TO ITCHY AREAS ON THE BACK TWICE A DAY UP TO 2 WEEKS ON, 1 WEEK OFF 01/23 completed Not Available Not Available Not Available misoprostol 200 mcg tablet 01/11 completed Not Available Not Available Not Available progesteron e micronized 200 mg capsule 01/11 completed Not Available Not Available Not Available omeprazole 20 mg capsule,del ayed release Take 1 capsule every day by oral route as directed for 90 days. 2024 active Not Available Not Available Not Avai lable montelukast 10 mg tablet Take 1 tablet every day by oral route for 30 days. 2024 active Not Available Not Available Not Avai lable codeine 10 mg-guaifene sin 100 mg/5 mL oral liquid Take 10 mL every 4 hours by oral route. 02/03 completed Not Available Not Available Not Available gabapentin 100 mg capsule Take 1 capsule every day by oral route for 30 days. 11/26 completed Not Available Not Available Not Available ibuprofen 600 mg tablet 01/15 completed Not Available Not Available Not Available levofloxaci n 500 mg tablet Take 1 tablet every 24 hours by oral route for 7 days. 02/03 completed Not Available Not Available Not Available zolpidem 10 mg tablet TAKE ONE TABLET BY MOUTH AT BEDTIME NEEDED needs appt for further refills call office 2024 active Not Available Not Available Not Avai lable methylpredn isolone 4 mg tablets in a dose pack Take 1 dose pk by oral route. 01/15 completed Not Available Not Available Not Available albuterol sulfate HFA 90 mcg/actuati on aerosol inhaler Inhale 2 puffs every 4 hours by inhalatio n route. 09/28 completed Not Available Not Available Not Available Cetrotide 0.25 mg subcutaneou s kit 01/11 completed Not Available Not Available Not Available itraconazol e 100 mg capsule 09/11 completed Not Available Not Available Not Available doxycycline hyclate 100 mg tablet 01/11 completed Not Available Not Available Not Available diazepam 5 mg tablet 01/11 completed Not Available Not Available Not Available oxycodone 5 mg tablet Take 1 tablet every 12 hours by oral route. 02/03 completed Not Available Not Available Not Available neomycin-po lymyxin-hyd rocort 3.5 mg-10,000 unit/mL-1 % ear drops,susp INSTILL 4 DROPS INTO AFFECTED EAR(S) BY OTIC ROUTE 3 TIMES PER DAY 2024 active Not Available Not Available Not Avai lable Sybil 0.35 mg tablet 09/11 completed Not Available Not Available Not Available ciclopirox 1 % shampoo APPLY DAILY TO RASH, LEAVE ON FOR 10 MIN AND RINSE OFF IN SHOWER. 01/23 completed Not Available Not Available Not Available Ovidrel 250 mcg/0.5 mL subcutaneou s syringe 01/11 completed Not Available Not Available Not Available nitrofurant oin monohydrate /macrocryst als 100 mg capsule 09/11 completed Not Available Not Available Not Available Menopur 75 unit subcutaneou s solution 01/11 completed Not Available Not Available Not Available zolpidem ER 12.5 mg tablet,exte nded release,mul tiphase Take 1 tablet every day by oral route at bedtime for 30 days. 2024 active Not Available Not Available Not Avai lable take one tab active Not Available Not Available No t Available Gonal-F 1,050 unit subcutaneou s solution 01/11 completed Not Available Not Available Not Available GaviLyte-G 236 gram-22.74 gram-6.74 gram-5.86 gram oral solution 11/26 completed Not Available Not Available Not Available Flowflex COVID-19 Antigen Home Test kit 01/23 completed Not Available Not Available Not Available Vitals Date Recorded Body height Body mass index (BMI) Body weight Heart rate Oxygen saturation Systolic And Diastolic Provider Name and Address Organization Details Last Updated DateTime 5 162.56 cm 28.3 kg/m2 14760.7 4 g 80 /min 98 % 118/70 mm[Hg] Baldomero Bernal [facility] 5 11:59:31 Date Recorded Body height Body mass index (BMI) Body weight Heart rate Oxygen saturation Systolic And Diastolic Provider Name and Address Organization Details Last Updated DateTime 4 162.56 cm 28.8 kg/m2 57311.5 2 g 72 /min 98 % 112/78 mm[Hg] Heena Gasca [facility] 4 09:47:25 Social History Question Answer Notes LastModified by Organizat ion Details LastModified Time Tobacco Smoking Status Never Smoker Not Available [facility] 09/27/2020 03:36:23 What Was The Date Of Your Most Recent Tobacco Screening? 02/03/2025 [email or web address] Information not available 02/03/2025 Sex: Female Functional Status None recorded. Mental Status None recorded. Family History Nothing Reported. Medical History No medical history recorded. Gynecological HistoryNo gynecological history recorded. Obstetrics History GPAL:G 0 P 0 0 0 0 Immunizations Vaccine Type Date Status Note Provider Nam e and Address Organization Details Recorded Time COVID-19, mRNA, LNP-S, PF, 100 mcg/0.5mL dose or 50 mcg/0.25mL dose 06/29/2021 completed Not Available [facility] 06:14:15 Tdap 05/13/2018 completed Not Available [facility] 11/27/2023 06:14:15 Past Encounters Encounter ID Performer Location Encounter Start Date Encounter Closed Date Diagnosis/Indication Diagnosis SNOMED-CT Code Diagnosis ICD10 Code Diagnosis IMO Codes Diagnosis Note [id number] February LYNSEY Parkinson [facility] [address] [facility], [place] [address] 02/25/2018 14:16:25 02/25/2018 15:33:43 Pre-surgery evaluation 780533017 Z01.818 cleared for surgery 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 Headache 02623727 R51 monitor Lethargy 687687222 R53.8 3 monitor Neck pain 79485025 M54.2 monitor conservati ve tx Laceration of head 17048 8000 S01.91XD healing well good hygiene monitor for signs of cellulitis [id number] Idris Frias [facility] [address] [facility],[place] [address] 08/29/2018 09:15:48 08/29/2018 10:05:41 Pityriasis versicolor 91659029 B36.0 [id number] Idris GaonaAlexandria Frias [facility] [address] [facility],[place] [address] 09/11/2019 11:12:50 09/11/2019 11:41:37 Insomnia 845634489 G47.00 apparently induced by fertility treatment will continue zolpidem and then will d/c if occurs Plantar fa sciitis of right foot 0922297375 2429393 M72.2 [id number] Idris Alexis Frias [facility] [address] [facility], [place] [address] 05/04/2020 13:32:04 05/04/2020 15:33:15 Cough 25057971 R05 patient tested negative for COVID > she does not want a re test at this time may have tested to early or may be a viral bronchitis vs a walking pna will treat with Z wilfredo and see if there is improvemen t Tight chest 68497098 R07 .89 as above [id number] Idris Frias [facility] [address] [facility],[place] [address] 01/11/2021 10:55:25 01/11/2021 13:31:06 Tinea corporis 09417162 B35.4 will send in referral to derm for Dr. Washington to see what the underlying cause is of the rash looks like tinea, but has failed treatment prior with antifungal so would like her to see specialist Otalgia of left ear 1089 498990 886187 H92.02 will trial OTC medication s as discussed for fluid and full up with me if no improvemen t [id number] Idris Frias [facility] [address] [facility],[place] [address] 07/17/2021 11:06:37 07/17/2021 14:04:10 Insomnia 991569465 G47.00 still very effective for the patient for her insomniaok ay with insurance for a 30 day supply Rhinitis medicamentosa 96258487 J31.0 will start on medrol dose wilfredo for rebound nasal congestion related to overuse of afrin productsif no improvemen t will submit referral to ENT [id number] Idris Frias [facility] [address],[place] [address] 01/23/2023 08:16:50 01/23/2023 11:54:59 Abdominal pain 84318847 R10.0 will fu with GI COVID-19 013647553 U07.1 no longer testing positive Nausea and vomiting 1692 1999 R11.2 will start on ondansetro n Pneumonia caused by SARS-CoV-2 1194461717 98284458 J12.82 was not treated by ER though they said she needed an abxwill send in doxycyclin e Insomnia 206154153 G47.0 0 still very effective for the patient for her insomniaok ay with insurance for a 30 day supply [id number] Idris Frias [facility] [address],[place] [address] 11/13/2023 10:33:53 11/13/2023 11:24:30 Cervico-occipital neuralgia 92036038 M54.81 will set up with XR first [id number] Idris Frias [facility] [address],[place] [address] 09/28/2024 09:38:36 09/28/2024 10:04:15 Depression screening [id number] Z13.31 SCREENING NEGATIVE Restless l egs syndrome 91010429 G25.81 recommende d workup first prior to attempting to try medication Pain in le ft lower limb 248915508 M79.605 will set up with MRI and EMG Lumbar radiculopathy 128 649347 M54.16 will [id number] [facility] [address],[place] [address] 01/15/2025 09:22:32 01/15/2025 12:14:49 Pneumonia [id number] J17 start on abx Nausea and vomiting 1693 1999 R11.2 will start on ondansetro n [id number] Idris Frias [facility] Internal Medicine [address] [facility],Genao ann Hernadez [facility] [place] [address] 02/03/2025 11:51:29 02/03/2025 14:15:36 Adult health examination 446400234 Z00.00 BP is excellent 118/70 R arm sitting [id number] Idris Frias DO [facility] Internal Medicine [address] [facility],Birgit [place] [address] 03/26/2025 10:19:20 03/26/2025 10:56:12 Pityriasis versicolor 72212300 B36.0 Systemic l upus erythematosus 87917864 M32.19 [id number] Muscle pain 97300585 M79 .10 [id number] Health Concerns Section Related Observation LastModified by Organization Detai ls LastModified Time None Recorded Concern Status LastModified by Organization Details LastModified Time None Recorded Advance Directives Directive None Recorded Payers Insurance Date Sequence Insurance Name Policy Number Policy De Oliveira Covered Member ID De Oliveira Member ID Guarantor Name 12/19/[address] [place] [address] [id number] Vanesa Pontbriant [id number] Vanesa Pontbriant 11/10/2025 1 [facility]: [facility] [place] [id number] Christopher Lissyrialexander [id number] Vanesa Isaactbriant Notes Date Note Type Note Provider Name a nd Address Organization Details Recorded Time 4 text/html ROS as noted in the HPI c/o left leg pain and nerve pain the patient reports when she hard her epidural for her daughter, they had her on the left side, medication pooled and caused some injury to her nerve patient has since had non-stop left leg discomfort twitching and stinging sensationnotes it gets worse at night, her leg is constantly moving, bouncing, twitching the patient reports that her Left leg at 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 due to the complication from the epiduralthe patient reports it has been three years the patient reports it is getting worse not better agreed to work upEMG and MRI recommendedorders sent working on having another baby currently TALITA WYATT [address] [place], [address], [facility] 09/28/2024 10:03:26 5 text/html ROS as noted in the HPI The patient is participating in this appointment via telemedicine communication with a phone call/video calling service (Doxy)The patient consents to use of these platforms in place of an in-person appointment due to either sick symptoms the patient is presenting with or current office closure due to COVID exposure in order to keep our office staff and patients safe The patient presents to the office today with concerns of sick symptoms including nasal congestion, chest congestion, tightness, cough which is worse at night and nausea denies fever, chills The symptoms started originally 3 weeks agoThe patient reports exposure to daughter and father with covid and pnaThe patient symptoms mainly involves the Pertinent comorbidities include n/a The patient symptoms are alleviated by restThe patient symptoms are exacerbated by talking activity The patient has tested for COVID-19 and the results was negative, negative for flu, negative for RSV TALITA WYATT [address] [place], [address], [facility] 01/15/2025 11:48:16 5 text/html Annual WellnessReported by PatientSocial/Behavior al HistoryFor fracture risk, patient reportsrecent explained fracturebut reportsno sudden unexplained fracturesandno previous musculoskeletal injuries(tailbone fracture from fall in october, healed well). For diet and nutrition, patient reportshealthy diet,discussed vitamin and supplement use,discussed portion control,discussed maintaining calcium balance, anddiscussed diet improvement. For physical activity, patient reportsexercises on a regular basis,recent increase in physical activity,good physical condition,discussed weightbearing activities, anddiscussed exercise habits. For additional lifestyle factors, patient reportsno tobacco use,stopped drinking alcohol, anddrinks alcohol (mild-moderate).Mental Status:For depression risk, patient reportsnever feels sad, empty, or tearful,no loss of interest in activities,no significant changes in weight,no sleep disturbances or insomnia,no agitation,no loss of energy,no feelings of worthlessness or guilt,no thoughts of suicide,no history of depression, andno history of mood disorders.Functional AbilityFor hearing, patient reportsno loss of hearing. For vision, patient reportsno vision problems.last dentist appt was in December, routine dental apptsROS as noted in the [facility] Fax: Dr. Kim at [facility] will have to stop the ambien, which she is awarewill wean off of it, half a tablet for the next few days and then d/c TALITA WYATT [address] [place], [address], [facility] 02/03/2025 12:41:55 5 text/html ROS as noted in the HPI c/o lab work for abnormality found at donation center the patient donates plasma, said they noted abnormal protein for possible lupus detected previous levels were wnlpatient does have symptoms ie headaches, rash, diarrhea, msk pain, fevers, fatigue etc which are intermittentwill expand to full rheum panel to determine if this is correct will fu after lab work TALITA WYATT [address] [place], [address], [facility] 03/26/2025 10:51:18 OBGyn Episode No OBEpisode recorded.
--- OUTSIDE RECORDS SUMMARY | 2025-11-10 20:56 | XMS_ITS | Encounter Summary ---
Author Organization [facility] Address [address] [address] Phone Care Team Providers Care Credit Collections Manager Name Role Phone Idris Frias DO Primary Care Provider [phone] Idris Frias DO Unavailable Encounter Details Date Type Department Care Team (Latest Contact Info) Description 08/28/2018 Transcribe Orders [facility]leb Delia [address] [facility] 2nd [place] [address] Ashely Fields PA-C [address], [address] [place] [address] [email or web address] Diarrhea, unspecified type (Primary Dx) Social History Tobacco Use Types Packs/Day Years Used Date Smoking Tobacco: Never Smokeless Tobacco: Never Alcohol Use Standard Drinks/Week Comments No 0 (1 standard drink = 0.6 oz pur e alcohol) Comments Unknown Sex and Gender Information Value Date Recorded Sex Assigned at Female 04/13/2018 7:16 PM EDT Legal Sex Female 9:16 PM EDT Gender Identity Female 04/13/2018 7:16 PM EDT Sexual Orientation Not on file documented as of this encounter Plan of Treatment Not on file documented as of this encounter Results * Stool culture (09/03/2018 3:45 PM EDT) Specimen Source/ Description STOOL STOOL [facility] Special Requests None [facility] Culture/Test NO SALMONELLA, SHIGELLA OR CAMPYLOBACTER ISOLATED [facility] Report Status 09/06/2018 FINAL [facility] Stool (Stool) 09/03/2018 3:4 5 PM EDT 09/03/2018 4:53 PM EDT us Ashely Fields PA-C LAB MICROBIOLOGY CULTURE ORDERA BLES Final Result Performing Organization Address City/[facility]/ZIP Co de Phone Number [address] [address] * Ova and parasites, stool (09/03/2018 3:45 PM EDT) Specimen Source/ Description STOOL STOOL [facility] Special Requests None [facility] DIRECT EXAM No parasites found by Trichrome Stain [facility] DIRECT EXAM NO PARASITES FOUND BY DIRECT OR CONCENTRATION METHODS [facility] Report Status 09/10/2018 FINAL [facility] Stool (Stool) 09/03/2018 3:4 5 PM EDT 09/03/2018 4:53 PM EDT us Ashely Fields PA-C LAB BODY FLUIDS AND STOOL ORDER GRACY Final Result Performing Organization Address [facility]/ZIP Co de Phone Number [address] [address] * H. pylori antigen, stool (09/03/2018 3:45 PM EDT) ST H.PYLORI AG Negative Negative [facility] DPT OF LAB MED AND PAT+ Stool (Stool) 09/03/2018 3:4 5 PM EDT 09/03/2018 4:54 PM EDT us Ashely Fields PA-C LAB BODY FLUIDS AND STOOL ORDER GRACY Final Result [facility] DPT OF LAB MED AND PAT+ [address] [place] [address] * Giardia antigen screen (09/03/2018 3:45 PM EDT) ST GIARDIA ANTIGEN Negative Negative [facility] DPT OF LAB MED AND PAT+ Stool (Stool) 09/03/2018 3:4 5 PM EDT 09/03/2018 4:54 PM EDT us Ashely Fields PA-C LAB BODY FLUIDS AND STOOL ORDER GRACY Final Result Performing Organization Address City/[facility]/ZIP Co de Phone Number [facility] DPT OF LAB MED AND PAT+ [address] [place] [address] * Calprotectin, stool (09/03/2018 3:45 PM EDT) CALPROTECTIN <15.6 <=50.0 (Normal) mcg/g [facility] DPT OF LAB MED AND PAT+ Stool (Stool) 09/03/2018 3:4 5 PM EDT 09/03/2018 4:54 PM EDT us Ashely Fields PA-C LAB BODY FLUIDS AND STOOL ORDER GRACY Final Result Performing Organization Address [facility] Co de Phone Number [facility] DPT OF LAB MED AND PAT+ [address] [place] [address] * Ova and parasites, stool (08/30/2018 5:00 PM EDT) Specimen Source/ Description STOOL PARA SIMRAN STOOL [facility] Special Requests None [facility] DIRECT EXAM No parasites found by Trichrome Stain [facility] DIRECT EXAM NO PARASITES FOUND BY DIRECT OR CONCENTRATION METHODS [facility] Report Status 09/10/2018 FINAL [facility] Stool (Stool) 08/30/2018 5:0 0 PM EDT 09/03/2018 4:50 PM EDT us Ashely Fields PA-C LAB BODY FLUIDS AND STOOL ORDER GRACY Final Result Performing Organization Address City/[facility]/ZIP Co de Phone Number [facility] [address] [place] [address] * Ova and parasites, stool (08/28/2018 7:00 PM EDT) Specimen Source/ Description STOOL PARA SIMRAN STOOL [facility] Special Requests None [facility] DIRECT EXAM No parasites found by Trichrome Stain [facility] DIRECT EXAM NO PARASITES FOUND BY DIRECT OR CONCENTRATION METHODS [facility] Report Status 09/10/2018 FINAL [facility] Stool (Stool) 08/28/2018 7:0 0 PM EDT 09/03/2018 4:47 PM EDT us Ashely Fields PA-C LAB BODY FLUIDS AND STOOL ORDER GRACY Final Result Performing Organization Address City/[facility]/ZIP Co de Phone Number [address] [address] * CBC (08/28/2018 4:00 PM EDT) WBC 6.78 3.40 - 11.20 K/uL [facility] RBC 4.69 3.80 - 4.80 M/uL [facility] HGB 13.3 12.0 - 15.0 g/dL [facility] HCT 39.7 36.0 - 46.0 % [facility] PLT 273 130 - 400 K/uL [facility] MCV 84.6 79.0 - 98.0 fL [facility] MCH 28.4 27.0 - 34.8 pg [facility] MCHC 33.5 31.5 - 36.0 g/dL [facility] RDW 12.9 10.8 - 14.6 % [facility] MPV 10.7 9.4 - 12.4 fl [facility] NRBC 0.00 /100 WBCs [facility] ABSOLUTE NRBC 0.00 K/uL [facility] Blood 08/28/2018 4:00 PM EDT 08/28/2018 4:14 PM EDT us Ashely Fields PA-C LAB BLOOD BKR ORDERABLES Final Result [address] [address] * TSH (08/28/2018 4:00 PM EDT) TSH 1.94 0.27 - 4.20 uIU/mL [facility] Blood 08/28/2018 4:00 PM EDT 08/28/2018 4:14 PM EDT us Ashely SANON-C LAB BLOOD BKR ORDERABLES Final Result Performing Organization Address City/[facility]/ZIP Co de Phone Number [address] [address] * C-Reactive Protein (08/28/2018 4:00 PM EDT) C REACTIVE PROTEIN 0.8 0.0 - 4.0 mg/L [facility] Blood 08/28/2018 4:00 PM EDT 08/28/2018 4:14 PM EDT Ashely SANON-[place] LAB BLOOD BKR ORDERABLES Final Result Performing Organization Address City/[facility] Co de Phone Number [address] [address] * Comprehensive metabolic panel (08/28/2018 4:00 PM EDT) SODIUM 141 133 - 146 mmol/L [facility] POTASSIUM 4.3 3.3 - 5.1 mmol/L [facility] CHLORIDE 102 96 - 108 mmol/L [facility] CO2 26 21 - 35 mmol/L [facility] BUN 10 6 - 19 mg/dL [facility] CREATININE 0.50 0.5 - 1.5 mg/dL [facility] GLUCOSE 95 70 - 99 mg/dL [facility] ALBUMIN 4.7 3.9 - 4.8 g/dL [facility] TOTAL PROTEIN 7.5 6.5 - 8.0 g/dL [facility] CALCIUM 9.3 8.4 - 10.3 mg/dL [facility] ALKALINE PHOSPHATASE 46 39 - 117 U/L [facility] TOTAL BILIRUBIN 0.3 0.0 - 1.2 mg/dL [facility] AST 22 0 - 37 U/L [facility] ALT 14 0 - 40 U/L [facility] GLOBULIN 2.8 1 - 4.8 g/dL [facility] EGFR >120 >59 mL/min/1.7 3m2 [facility] Comment:If patient is black, multiply result by 1.159. Estimated glomerular filtration rate calculated using the CKD-EPI equation. ANION GAP 17 10 - 20 mmol/L [facility] Blood 08/28/2018 4:00 PM EDT 08/28/2018 4:14 PM EDT us Ashely Fields PA-C LAB BLOOD BKR ORDERABLES Final Result [address] [address] * Tissue transglutaminase IgA (08/28/2018 4:00 PM EDT) TTG IGA ANTIBODY <1.2 <4.0 (Negative) U/mL [facility] DPT OF LAB MED AND PAT+ Blood 08/28/2018 4:00 PM EDT 08/28/2018 4:13 PM EDT us Ashely Fields PA-C LAB BLOOD BKR ORDERABLES Final Result Performing Organization Address City/[facility]/ZIP Co de Phone Number [facility] DPT OF LAB MED AND PAT+ [address] [place] [address] * Immunoglobulin A (08/28/2018 4:00 PM EDT) IgA 154 70 - 400 mg/dL [facility] Blood 08/28/2018 4:00 PM EDT 08/28/2018 4:14 PM EDT us Ashely Fields PA-C LAB BLOOD BKR ORDERABLES Final Result Performing Organization Address City/[facility]/ZIP Co de Phone Number [address] [address] documented in this encounter Visit Diagnoses Diagnosis Diarrhea, unspecified type- Primary documented in this encounter Care Teams Credit Collections Manager Relationship Specialty Start Date End Date Idris Firas DO [email or web address] PCP - General 09/12/17 Idris Frias DO [address] [place] [id number] [email or web address] Insurance Assigned Provider 02/29/24 documented as of this encounter Additional Source Comments The information contained in this document represents components of the legal health record. It is not the complete legal health record.[facility]
--- OUTSIDE RECORDS SUMMARY | 2025-11-10 20:56 | XMS_ITS | Encounter Summary ---
Author Organization [facility] Address [address] [address] Phone Care Team Providers Care Forensic Pathologist Name Role Phone Idris Frias DO Primary Care Provider [phone] Idris Frias DO Unavailable Encounter Details Date Type Department Care Team (Late st Contact Info) Description 04/13/2018 Procedure Pass [facility], Ct Scan - [facility] [address] [place] [address] Social History Tobacco Use Types Packs/Day Years [...] on filedocumented in this encounter Care Teams Forensic Pathologist Relationship Specialty Start Date End Date Idris Frias DO PCP - General 09/12/17 Idris Frias DO [address] [place] [address] [email or web address] Insurance Assigned Provider 02/29/24 documented as of this encounter Additional Source Comments The information contained in this document represents components of the legal health record. It is not the complete legal health record.[facility]
--- OUTSIDE RECORDS SUMMARY | 2025-11-10 20:56 | XMS_ITS | Encounter Summary ---
Author Organization [facility] Address [address] [facility] [address] [place] [address] Phone Care Team Providers Care Scroll Saw Operator Name Role Phone Idris Frias DO Primary Care Provider [phone] Idris Frias DO Unavailable Encounter Details Date Type Department Care Team (Late st Contact Info) Description 11/26/2023 Procedure Pass [facility], Ct Scan - [address] [address] Social History Tobacco Use Types Packs/Day Years [...] 11/26/2023 8:27 PM Nayeli Smith RN * [place] Suicide Severity Rating Scale (Screener/Recent Self-Report) Question [...] on filedocumented in this encounter Care Teams Scroll Saw Operator Relationship Specialty Start Date End Date Idris Frias DO PCP - General 09/12/17 Idris Frias DO [address] [place] [address] Insurance Assigned Provider 02/29/24 documented as of this encounter Additional Source Comments The information contained in this document represents components of the legal health record. It is not the complete legal health record.[facility]
--- OUTSIDE RECORDS SUMMARY | 2025-11-10 20:56 | XMS_ITS | Encounter Summary ---
Author Organization [facility] Address [address] [address] Phone Care Team Providers Care Deputy Manager Name Role Phone Idris Frias DO Primary Care Provider [phone] Idris Frias DO Unavailable Encounter Details Date Type Department Care Team (Late st Contact Info) Description 04/09/2023 Procedure Pass [facility], [address] [place] [address] Social History Tobacco Use Types Packs/Day Years Used Date Smoking Tobacco: Never Smokeless Tobacco: Never Alcohol Use Standard Drinks/Week Comments No 0 (1 standard drink = 0.6 oz pur e alcohol) Education Answer Date Recorded Are you interested in more education? Not on jann e 03/22/2023 Are you concerned about learning? Not on file 03/22/2023 No 03/22/2023 No 03/22/2023 Comments No Sex and Gender Information Value Date Recorded Sex Assigned at Female 04/13/2018 7:16 PM EDT Legal Sex Female 9:16 PM EDT Gender Identity Female 04/13/2018 7:16 PM EDT Sexual Orientation Not on file documented as of this encounter Plan of Treatment Not on file documented as of this encounter Visit Diagnoses Not on filedocumented in this encounter Care Teams Deputy Manager Relationship Specialty Start Date End Date Idris Frias DO PCP - General 09/12/17 Idris Frias DO [address] [place] [address] [email or web address] Insurance Assigned Provider 02/29/24 documented as of this encounter Additional Source Comments The information contained in this document represents components of the legal health record. It is not the complete legal health record.[facility]
--- OUTSIDE RECORDS SUMMARY | 2025-11-10 20:56 | XMS_ITS | Encounter Summary ---
Author Organization [facility] Address 399 [facility] [address] [place] [address] Phone Care Team Providers Care Through Operator Name Role Phone PariIdris carbajal Primary Care Provider [phone] PariIdris carbajal Unavailable Reason for Referral * MRI/CAT Scan - Closed Specialty Diagnoses / Procedures Referred By Florian courtney Referred To Contact Radiology Diagnoses Radiculopathy, cervical region Procedures MRI Cervical Spine Ne Martin PA [address] [facility] [place] [address] [place] [address] Phone: tel: fax: Referral ID Status Reason Start Date Expiration Date Visits Re quested Visits Authorized [id number] Closed 12/14/2023 1 1 Encounter Details Date Type Department Care Team (Latest Contact Info) Description 12/14/2023 Transcribe Orders Virtual Department [address] [place] [address] Ne Martin PA [address] [facility] [place] [address] [place] [address] Radiculopathy, cervical region (Primary Dx) Social History Tobacco Use Types [...] as of this encounter Results * MRI CERVICAL SPINE (NEURO) FOCUS WITHOUT CONTRAST (12/21/2023 5:17 PM EST) Anatomical Region Laterality Modality C-spine Magnetic Resonan ce 12/22/2023 6:42 AM EST Impressions 12/22/2023 7:57 PM EST Mild left foraminal stenosis at C5-C6. No evidence of high-grade foraminal stenosis or significant spinal canal stenosis in the cervical spine. Narrative 12/22/2023 7:57 PM EST MRI CERVICAL SPINE (NEURO) FOCUS WITHOUT CONTRAST Referring clinician's provided indication for this examination in Epic: Outside Radiology Order; Radiculopathy, cervical region TECHNIQUE: MRI CERVICAL SPINE (NEURO) FOCUS WITHOUT CONTRAST Multi-sequence, multi-planar MRI of the cervical spine was performed without intravenous contrast. COMPARISON: None FINDINGS: CERVICAL SPINE: Alignment and Vertebrae: Normal alignment. No compression fracture. Marrow: No bone marrow replacing lesion. Discs and Endplates: Normal intervertebral disc heights and signal. Spinal Cord: No spinal cord compression or signal abnormality. Soft Tissue: Normal. No prevertebral edema. Findings by level: C2-C3: Normal. No spinal or foraminal stenosis. C3-C4: Normal. No spinal or foraminal stenosis. C4-C5: Normal. No spinal or foraminal stenosis. C5-C6: Mild left uncovertebral hypertrophy. Mild left foraminal stenosis. No significant spinal canal stenosis. C6-C7: Normal. No spinal or foraminal stenosis. C7-T1: Normal. No spinal or foraminal stenosis. Procedure Note Jason Navarro MD - 12/22/2023 MRI CERVICAL SPINE (NEURO) FOCUS WITHOUT CONTRAST Referring clinician's provided indication for this examination in Epic:Outside Radiology Order; Radiculopathy, cervical region TECHNIQUE: MRI CERVICAL SPINE (NEURO) FOCUS WITHOUT CONTRAST Multi-sequence, multi-planar MRI of the cervical spine was performedwithout intravenous contrast. COMPARISON: None FINDINGS: CERVICAL SPINE: Alignment and Vertebrae: Normal alignment. No compression fracture. Marrow: No bone marrow replacing lesion. Discs and Endplates: Normal intervertebral disc heights and signal. Spinal Cord: No spinal cord compression or signal abnormality. Soft Tissue: Normal. No prevertebral edema. Findings by level: C2-C3: Normal. No spinal or foraminal stenosis. C3-C4: Normal. No spinal or foraminal stenosis. C4-C5: Normal. No spinal or foraminal stenosis. C5-C6: Mild left uncovertebral hypertrophy. Mild left foraminal stenosis.No significant spinal canal stenosis. C6-C7: Normal. No spinal or foraminal stenosis. C7-T1: Normal. No spinal or foraminal stenosis. IMPRESSION: Mild left foraminal stenosis at C5-C6. No evidence of high-grade foraminalstenosis or significant spinal canal stenosis in the cervical spine. Ne SANON IMG MR XSPECIALTY Final Res ult documented in this encounter Visit Diagnoses Diagnosis Radiculopathy, cervical region- Primary Brachial neuritis or radiculitis nos Radiculopathy, cervical region Brachial neuritis or radiculitis nos documented in this encounter Care Teams Through Operator Relationship Specialty Start Date End Date Idris Frias DO PCP - General 09/12/17 Idris Frias DO [address] [place] [phone] Insurance Assigned Provider 02/29/24 documented as of this encounter Additional Source Comments The information contained in this document represents components of the legal health record. It is not the complete legal health record.[facility]
--- OUTSIDE RECORDS SUMMARY | 2025-11-10 20:56 | XMS_ITS | Encounter Summary ---
Author Organization [facility] Address [address] [facility] [address] [place] [id number] Phone Care Team Providers Care Hospital Aide Name Role Phone Idris Frias DO Primary Care Provider [phone] Idris Frias DO Unavailable Encounter Details Date Type Department Care Team (Late st Contact Info) Description 11/27/2023 Procedure Pass [facility], [address] [place] [address] Social History Tobacco Use Types Packs/Day Years [...] on filedocumented in this encounter Care Teams Hospital Aide Relationship Specialty Start Date End Date Idris Frias DO [email or web address] PCP - General 09/12/17 Idris Frias DO [address] [place] [address] [email or web address] Insurance Assigned Provider 02/29/24 documented as of this encounter Additional Source Comments The information contained in this document represents components of the legal health record. It is not the complete legal health record.[facility]
--- OUTSIDE RECORDS SUMMARY | 2025-11-10 20:56 | XMS_ITS | Encounter Summary ---
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-occipital neuralgia Procedures MRI Brain Ne Martin PA [address] [place] [address] Phone: tel: fax: Referral ID Status Reason Start Date Expiration Date Visits Re quested Visits Authorized [id number] Closed 11/27/2023 1 1 Encounter Details Date Type Department Care Team (Latest Contact Info) Description 11/27/2023 Transcribe Orders Virtual Department [address] [place] [id number] Ne Martin PA [address] [facility] [place] [address] Persistent migraine aura without cerebral infarction, not intractable, without status migrainosus (Primary Dx); Cervico-occipital neuralgia Social History Tobacco Use Types Packs/Day Years [...] as of this encounter Results * MRI BRAIN WITHOUT CONTRAST (12/06/2023 7:14 AM EST) Anatomical Region Laterality Modality Head Magnetic Resonan ce 12/07/2023 7:05 AM EST Impressions 12/07/2023 8:00 AM EST No intracranial cause for the reported symptoms identified. Narrative 12/07/2023 8:00 AM EST MRI BRAIN WITHOUT CONTRAST Referring clinician's provided indication for this examination in Epic: Outside Radiology Order; Persistent migraine aura without cerebral infarction, not intractable, without status mirgrainosus TECHNIQUE: MRI BRAIN WITHOUT CONTRAST Multi-sequence, multi-planar MRI of the brain was performed without intravenous contrast. COMPARISON: None FINDINGS: Brain Parenchyma: Normal. No evidence of acute infarct, mass lesion, or hemorrhage. Ventricular System and Extra-Axial Spaces: Normal. No evidence of midline shift or hydrocephalus. Extracranial Structures: Arterial flow voids in the skull base are present. Procedure Note Jason Navarro MD - 12/07/2023 MRI BRAIN WITHOUT CONTRAST Referring clinician's provided indication for this examination in [facility]:Outside Radiology Order; Persistent migraine aura without cerebralinfarction, not intractable, without status mirgrainosus TECHNIQUE: MRI BRAIN WITHOUT CONTRAST Multi-sequence, multi-planar MRI of the brain was performed withoutintravenous contrast. COMPARISON: None FINDINGS: Brain Parenchyma: Normal. No evidence of acute infarct, mass lesion, orhemorrhage. Ventricular System and Extra-Axial Spaces: Normal. No evidence of midlineshift or hydrocephalus. Extracranial Structures: Arterial flow voids in the skull base arepresent. IMPRESSION: No intracranial cause for the reported symptoms identified. Ne SANON IMG MR HEAD/NECK Final Resu lt documented in this encounter Visit Diagnoses Diagnosis Persistent migraine aura without cerebral infarction, not intractable, without status migrainosus- Primary Cervico-occipital neuralgia Other syndromes affecting cervical region Persistent migraine aura without cerebral infarction, not intractable, without status migrainosus Cervico-occipital neuralgia Other syndromes affecting cervical region documented in this encounter Care Teams Mink Slicer Relationship Specialty Start Date End Date Idris Frias DO PCP - General 09/12/17 Idris Frias DO [address] [place] [address] Insurance Assigned Provider 02/29/24 documented as of this encounter Additional Source Comments The information contained in this document represents components of the legal health record. It is not the complete legal health record.[facility]
--- OUTSIDE RECORDS SUMMARY | 2025-11-10 20:56 | XMS_ITS | Encounter Summary ---
Author Organization [facility] Address [address] [facility] [address] [place] [address] Phone Care Team Providers Care Bee Producer Name Role Phone Idris Frias DO Primary Care Provider [phone] Idris Frias DO Unavailable Encounter Details Date Type Department Care Team (Late st Contact Info) Description 12/14/2023 Procedure Pass [facility], [address] [address] Social History Tobacco Use Types Packs/Day Years [...] on file documented as of this encounter Last Filed Vital Signs Vital Sign Reading Time Taken Comments Blood Pressure - - Pulse - - Temperature - - Respiratory Rate - - Oxygen Saturation - - Inhaled Oxygen Concentration - - Weight 68 kg (150 lb) 12/17/2023 11:30 AM EST Height 162.6 cm (5' 4 ) 12/17/2023 11:30 AM EST Body Mass Index 25.75 12/17/2023 11:30 AM EST documented in this encounter Plan of Treatment Not on file documented as of this encounter Visit Diagnoses Not on filedocumented in this encounter Care Teams Bee Producer Relationship Specialty Start Date End Date Idris Frias DO PCP - General 09/12/17 Idris Frias DO [address] [place] [address] Insurance Assigned Provider 02/29/24 documented as of this encounter Additional Source Comments The information contained in this document represents components of the legal health record. It is not the complete legal health record.[facility]
--- OUTSIDE RECORDS SUMMARY | 2025-11-10 20:56 | XMS_ITS | Encounter Summary ---
Author Organization [facility] Address [address] [address] Phone Care Team Providers Care City Alderman Name Role Phone Idris Frias DO Primary Care Provider [phone] Idris Frias DO Unavailable Encounter Details Date Type Department Care Team (Late st Contact Info) Description 04/13/2018 Procedure Pass [facility], Ct Scan - [facility] [address] [place] [address] Social History Tobacco Use Types Packs/Day Years [...] on filedocumented in this encounter Care Teams City Alderman Relationship Specialty Start Date End Date Idris Frias DO PCP - General 09/12/17 Idris Frias DO [address] [place] [id number] [email or web address] Insurance Assigned Provider 02/29/24 documented as of this encounter Additional Source Comments The information contained in this document represents components of the legal health record. It is not the complete legal health record.[facility]
--- OUTSIDE RECORDS SUMMARY | 2025-11-10 20:56 | XMS_ITS | Clinical Summary ---
Author Organization [address] [facility] Address [address] [place] [address] Phone Care Team Providers Care Case Specialist Name Role Phone Idris Frias Primary Care Provider [phone] Allergies Active Allergy Reactions Criticality Noted Date Comments Naproxen Hives,Shortness of breath,Wheezing High 11/25/2009 Sulfamethoxazole-Trimethop rim Hives 11/08/2000 Tramadol 03/05/2025 Medications PNV no.95/ferrous fum/folic ac ( MULTIVITAMINS ORAL) Take by mouth. 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 Social History Tobacco Use Types Packs/Day Years Used Date Smoking Tobacco: Never Smokeless Tobacco: Never Alcohol Use Standard Drinks/Week Comments Never 0 (1 standard drink = 0.6 oz pur e alcohol) Comments Unknown Sex and Gender Information Value Date Recorded Sex Assigned at Not on file Legal Sex Female 8:54 PM EST Gender Identity Not on file Sexual Orientation Not on file Last Filed Vital Signs Vital Sign Reading Time Taken Comments Blood Pressure 137/81 04/10/2024 8:55 AM EDT Pulse 82 04/10/2024 8:55 AM EDT Temperature - - Respiratory Rate - - Oxygen Saturation - - Inhaled Oxygen Concentration - - Weight 77.1 kg (170 lb) 03/05/2025 11:18 AM EDT Height 162.6 cm (5' 4 ) 03/05/2025 11:18 AM EDT Body Mass Index 29.18 03/05/2025 11:18 AM EDT Plan of Treatment Health Maintenance Due Date Last Done Comments Breast Cancer Screening 1984 Hepatitis B Vaccines (1 of 3 - 19+ 3-dose series) 2003 Pneumococcal Vaccine: Pediatrics (0 to 5 Years) and At-Risk Patients (6 to 49 Years) (1 of 2 - PCV) 2003 Cervical Cancer Screening: P ap Smear 2005 HPV Vaccines (1 - 3-dose SCD M series) 2011 HIV Screening 12/20/2023 Hepatitis C Screening 12/20/2023 Social Influencers of Health Screening 12/20/2023 Depression Screening 11/25/2024 COVID-19 Vaccine (3 - 2024-2 6 season) 2025 07/28/2021, 06/29/2021 Influenza Vaccine (#1) 2025 DTaP,Tdap,and Td Vaccines (3 - Td or Tdap) 05/13/2028 05/13/2018, 05/12/2018 RSV Immunization Adult Patients (1 - 1-dose 75+ series) 2059 HIB Vaccines Aged Out No longer eligi ble based on patient's age to complete this topic Hepatitis A Vaccines Aged Out No long er eligible based on patient's age to complete this topic IPV Vaccines Aged Out No longer eligi ble based on patient's age to complete this topic MMR Vaccines Aged Out No longer eligi ble based on patient's age to complete this topic Meningococcal ACWY Vaccine Aged Out N o longer eligible based on patient's age to complete this topic Meningococcal B Vaccine Aged Out No l onger eligible based on patient's age to complete this topic RSV Immunization Patients Under 20 months Aged Out No longer eligible b ased on patient's age to complete this topic Varicella Vaccines Aged Out No longer eligible based on patient's age to complete this topic Insurance [facility] Care Teams Case Specialist Relationship Specialty Start Date End Date Idris Frias DO [address] [facility] [address] [place], [place] PCP - General 07/09/23
== END 2025-11-10 20:02 | disposition home or self-care (01) ==
PROVIDERS: Emergency Provider Emergency Medicine; PCP Internal Medicine
DX: E04.1 Nontoxic single thyroid nodule (principal); E87.6 Hypokalemia; G93.40 Encephalopathy, unspecified; R47.81 Slurred speech; R41.0 Disorientation, unspecified; I45.10 Unspecified right bundle-branch block; Z13.6 Encounter for screening for cardiovascular disorders
CPT/HCPCS: 36415; 70450; 70496; 70498; 80048; 80061; 80307; 82947; 83735; 84132; 84484; 85025; 85610; 85730; 93005; 96365; 96366; 96367; 96375; 99284; 99285; J1308; J2405; J3475; J3480; Q9967

== ENCOUNTER → 2025-11-10 15:54 | Outpatient (BNV) | payer BC, SELFPAY | PROVIDERS: Emergency Provider Emergency Medicine; PCP Internal Medicine; Visit Provider Internal Medicine Cardiovascular Disease | DX: I45.10 Unspecified right bundle-branch block (principal) | CPT/HCPCS: 93010 ==

== ENCOUNTER → 2025-11-10 15:54 | Outpatient (BNV) | payer BC, SELFPAY | PROVIDERS: Emergency Provider Emergency Medicine; PCP Internal Medicine; Visit Provider Radiology Diagnostic Radiology | DX: R41.0 Disorientation, unspecified (principal); R47.81 Slurred speech | CPT/HCPCS: 70450; 70496; 70498 ==

== ENCOUNTER 2025-11-24 10:50 | Outpatient (AMB) | payer BC, SELFPAY ==
--- OUTSIDE RECORDS SUMMARY | 2019-10-28 12:11 | XMS_ITS | Encounter Summary ---
Author Organization [facility] Address [address] [facility] [address] [place] [phone] Phone Care Team Providers Care Flume Worker Name Role Phone Idris Frias Primary Care Provider [phone] Encounter Details Date Type Department Care Team (Late st Contact Info) Description 10/28/2019 12:11 PM [facility] Hospital Encounter [facility] [address] [place] [id number] Anthony Naranjo, DALE [address] [place] [address] [place] [address] Social History Tobacco Use Types Packs/Day Years [...] on file documented as of this encounter Plan of [...] No evidence of acute fractures. POS - [id number] Narrative 10/28/2019 12:33 PM EST HISTORY: Pain laterally after injury. COMPARISON: None VIEWS: Four views FINDINGS: No evidence of fractures. No subluxations or dislocations. Joint spaces well-maintained. Procedure Note Huey Issa MD - 10/28/2019 HISTORY: Pain laterally after injury. COMPARISON: None VIEWS: Four views FINDINGS: No evidence of fractures. No subluxations or dislocations. Joint spaceswell-maintained. IMPRESSION: No evidence of acute fractures. POS - [id number] Anthony Naranjo REAR ADMIRAL IMG XR LOWER EXTREMITY Final Re sult documented in this encounter Visit Diagnoses Not on filedocumented in this encounter Care Teams Flume Worker Relationship Specialty Start Date End Date Idris Frias DO [phone] (work) [email or web address] PCP - General 09/12/17 documented as of this encounter Additional Source Comments The information contained in this document represents components of the legal health record. It is not the complete legal health record.[facility]
--- NOTE | 2025-11-24 11:06 | MHC.OFFVIS ---
Intake Visit Reasons: [id number] Speech (TIA) Allergies sulfamethoxazole (From BACTRIM) Allergy (Intermediate, Verified 11/10/25 16:40) HIVES trimethoprim (From BACTRIM) Allergy (Intermediate, Verified 11/10/25 16:40) HIVES metoclopramide Adverse Reaction (Severe, Verified 11/10/25 16:40) akathesia ethinyl estradiol (From ORTHO TRI-CYCLEN (28)) Adverse Reaction (Intermediate, Verified 11/10/25 16:40) TIA naproxen (NAPROXEN) Adverse Reaction (Intermediate, Verified 11/10/25 16:40) GI UPSET norgestimate (From ORTHO TRI-CYCLEN (28)) Adverse Reaction (Intermediate, Verified 11/10/25 16:40) TIA HPI Comments Details: The patient is a 40-year-old female presenting for evaluation of recurrent, transient neurological episodes. She was hospitalized two weeks prior for a suspected stroke after her found her unresponsive with stroke-like symptoms, including inability to lift her arms and tongue deviation, which began after a day of vomiting from the flu. During that admission, she was found to have low potassium, low magnesium, and high blood sugar, and the emergency department physician suspected the event was a seizure. The patient reports a long history of similar events, which she states were previously diagnosed as TIAs. Her first episode occurred 15-20 years ago and began with perioral and hand tingling, followed by hand contractures, inability to speak, and vomiting, which resulted in left-sided paralysis for several weeks. She has had three subsequent episodes, always affecting her left side, characterized by tingling, numbness, slurred speech, facial droop, and periods of unresponsiveness where she can hear but not communicate. Approximately two years ago, she fell and hit her head, subsequently developing severe headaches for two months that progressed to left arm weakness and left-sided facial numbness and tingling. An evaluation at that time revealed a compressed vertebra, which was thought to have caused a TIA. She received injections in her head from an audio specialist which provided relief for about five months. 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 Previous workups include multiple CT scans and a recent, normal brain MRI. She takes zolpidem for sleep but no other prescription medications. The patient denies any history of recreational drug use, smoking, or alcohol consumption. She has a history of major infertility and has put IVF plans on hold pending a diagnosis. [facility] Medical History (Updated 11/24/25 @ 11:13 by Miguel Shell MD) Seizure disorder Social History Alcohol intake: unknown Review of Systems Narrative - Neurological: Reports recurrent episodes of unresponsiveness, left-sided weakness, dysarthria, and left-sided facial droop. - Also reports recurrent left-sided headaches, perioral paresthesias, and tingling and numbness of the left face and arm. - Gastrointestinal: Reports history of vomiting. - Denies diarrhea. - Psychiatric: Denies anxiety. - Genitourinary: Reports history of infertility. - Denies current . - Eyes: Reports history of paresthesias around the eyes and newly diagnosed astigmatism. Physical Exam Neuro Other: Mental Status: Alert and oriented to person, place, and time. Normal attention. Normal spontaneous speech, fluency, and comprehension. No obvious issues with mood and memory. Affect is appropriate. Cranial Nerves: CN II: Visual thomas full to confrontation, visual acuity intact. CN III, IV, : Pupils equal, round, reactive to light and accommodation. Extraocular movements are normal. CN V: Facial sensation is normal. CN VII: Facial movements symmetrical. CN VIII: Hearing intact to bedside conversation is normal. CN IX, X: Palate elevates symmetrically. CN XI: Shoulder shrug and head turn symmetrical. CN XII: Tongue midline without atrophy or fasciculations. Motor: Bulk and tone normal in all extremities. No significant muscle weakness in arms and legs. No drift. Reflexes: Deep tendon reflexes 2+ and symmetric. Plantar response down-going bilaterally. Coordination: Lkqiou-gi-rwow and lgxd-dr-lvah testing normal. No dysmetria. Gait and Station: No obvious gait abnormality. No ataxia or instability. Extrapyramidal: Full facial expressions and blinking. No rigidity. Movements are appropriate with no tremor or abnormality. Speech: Normal; no dysarthria or tremor. Results Reviewed Results Reviewed: CT HEAD WITHOUT CONTRAST (STROKE PROTOCOL) CLINICAL INFORMATION: Stroke protocol. COMPARISON: December 25, 2022. TECHNIQUE: Contiguous axial imaging was performed from the skull base to vertex without intravenous administration of contrast. This CT examination was performed using dose optimization techniques as appropriate, variously including the following: *Automated exposure control *Adjustment of mA and/or kV according to patient size (this includes techniques or standardized protocols for targeted exams where dose is matched to indication/reason for exam; i.e. extremities or head) *Use of iterative reconstruction technique DLP: 684 mGy-cm FINDINGS: No acute intracranial hemorrhage, mass effect, midline shift, hydrocephalus or herniation. No increased density in the MCA Bravo-white matter differentiation is normal. Posterior cranial fossa contents demonstrated no mass effect or acute hemorrhage. Normal position of the cerebellar tonsils. Sellar/suprasellar region is normal. No acute fracture in the bony calvarium. No air-fluid levels in the paranasal sinuses. Tympanic cavities and mastoid cells are aerated. CT/CT head for STROKE IMPRESSION: No acute intracranial hemorrhage or acute brain abnormality by CT. CT ANGIOGRAM HEAD AND NECK CLINICAL INFORMATION: Stroke protocol. COMPARISON: None available. Correlation made with noncontrast head CT earlier same day. TECHNIQUE: Test bolus sequences and head and neck intravenous bolus administration 70 mL of Omnipaque 350. Helical imaging was performed in the axial plane from the aortic arch to the skull vertex. A [address] head was also obtained. The data was processed at the blood bank laboratory technologist's workstation for generation of MIP sequences. Angled MIPs and volume rendered reformatted images were also generated at an offline 3D workstation. Stenoses are assessed in accordance with NASCET criteria unless otherwise indicated. This CT examination was performed using dose optimization techniques as appropriate, variously including the following: *Automated exposure control *Adjustment of mA and/or kV according to patient size (this includes techniques or standardized protocols for targeted exams where dose is matched to indication/reason for exam; i.e. extremities or head) *Use of iterative reconstruction technique FINDINGS: NECK CTA: -AORTIC ARCH: Normal in caliber. No significant atheromatous calcification. Three-vessel branching pattern. -GREAT VESSEL ORIGINS: Widely patent. No stenosis. -RIGHT COMMON CAROTID ARTERY: Normal in course and caliber to the level of the bifurcation. -CERVICAL RIGHT INTERNAL CAROTID ARTERY: Normal opacification without focal stenosis or occlusion. -LEFT COMMON CAROTID ARTERY: Normal in course and caliber to the level of the bifurcation. -CERVICAL LEFT INTERNAL CAROTID ARTERY: Normal opacification without focal stenosis or occlusion. -CERVICAL RIGHT VERTEBRAL ARTERY: Slightly dominant. Normal in origin, course and caliber into the skull base. -CERVICAL LEFT VERTEBRAL ARTERY: Slightly nondominant. Normal in origin, course and caliber into the skull base. OTHER, SOFT TISSUES: -No lymphadenopathy or mass. No abnormal fluid collection or soft tissue swelling. -There is a 10 mm nodule in the right posterior thyroid. Thyroid otherwise normal. -Imaged superior mediastinal structures normal. -Imaged lung apices clear. CTA OF THE BRAIN: -INTRACRANIAL INTERNAL CAROTID ARTERIES: Normal. Normal ophthalmic artery origins bilaterally. -RIGHT ANTERIOR CEREBRAL ARTERY: Normal A1 segment. Normal arborization of the distal segments. -LEFT ANTERIOR CEREBRAL ARTERY: Normal A1 segment. Normal arborization of the distal segments. -ANTERIOR COMMUNICATING ARTERY: Normal. -RIGHT MIDDLE CEREBRAL ARTERY: Normal M1 segment of the MCA without focal stenosis or occlusion. Normal bifurcation. Normal arborization of the distal segments. -LEFT MIDDLE CEREBRAL ARTERY: Normal M1 segment of the MCA without focal stenosis or occlusion. Normal bifurcation. Normal arborization of the distal segments. -RIGHT VERTEBRAL ARTERY V4: Normal in course and caliber. Normal PICA branch. -LEFT VERTEBRAL ARTERY V4: Normal in course and caliber. There is a left AICA/PICA. -BASILAR ARTERY: Normal without focal stenosis or occlusion. Normal appearance of the proximal superior cerebellar arteries. Normal basilar tip. -RIGHT POSTERIOR CEREBRAL ARTERY: Normal P1 segment. Normal opacification of the distal ELECTRIC MOTOR CONTROL ASSEMBLER segments. -LEFT POSTERIOR CEREBRAL ARTERY: Normal P1 segment. Normal opacification of the distal ELECTRIC MOTOR CONTROL ASSEMBLER segments. -POSTERIOR COMMUNICATING ARTERIES: The right is present and well seen. The left is not well visualized. Assessment & Plan Assessment & Plan (1) Seizure disorder: Code(s): G40.909 - Epilepsy, unspecified, not intractable, without status epilepticus Category: Medical Plan Impression: a: Seizure disorder vs migraine equivalent syndrome b: Migraine Rec: a: EEG b: Review of brain MR at next visit I educated the patient that her history of recurrent, transient neurological events, previously labeled as TIAs, are not consistent with a vascular etiology like stroke. I explained that the symptoms point toward an electrical problem, such as migraine or seizures. I have ordered an EEG to test for a seizure disorder and have prescribed topiramate, explaining that this medication can be effective for both potential diagnoses. We discussed that she is not , but given her plans for future IVF, she must inform me before proceeding so we can re-evaluate her medications. I instructed her to bring the disc of her recent brain MRI for my review at our follow-up appointment. Orders: Orders EEG Routine Today G40.909 - Epilepsy, unspecified, not intractable, without status epilepticus Medications: New topiramate 25 mg orally one at night; 90 tabs 0RF Coding Level of Care Code New Pt Level 4 (18080) Diagnoses Seizure disorder G40.908
--- OUTSIDE RECORDS SUMMARY | 2025-11-24 12:18 | XMS_ITS | Encounter Summary ---
Author Organization [facility] Address [address] [address] Phone Care Team Providers Care Jet Operator Name Role Phone Idris Frias DO Primary Care Provider Idris Frias DO Unavailable Encounter Details Date Type Department Care Team (Latest Contact Info) Description 06/29/2024 Transcribe Orders Virtual Department [address] [place] [address] Nedra Madden MD [address] [place] [phone] Breast screening (Primary Dx) Social History Tobacco [...] unspecified documented in this encounter Care Teams Jet Operator Relationship Specialty Start Date End Date Idris Frias DO PCP - General 09/12/17 Idris Frias DO [address] [place] [address] Insurance Assigned Provider 02/29/24 documented as of this encounter Additional Source Comments The information contained in this document represents components of the legal health record. It is not the complete legal health record.[facility]
--- OUTSIDE RECORDS SUMMARY | 2025-11-24 12:19 | XMS_ITS | Encounter Summary ---
Author Organization [facility] Address [address] [address] Phone Care Team Providers Care Manager Food Beverage Name Role Phone Idris Frias DO Primary Care Provider [phone] Idris Frias DO Unavailable Encounter Details Date Type Department Care Team (Latest Contact Info) Description 08/28/2018 Transcribe Orders [facility]leb Delia [address] [facility] 2nd [place] [address] Ashely Fields PA-C [address] [place] [address] [email or web address] Diarrhea, unspecified type (Primary Dx) Social History [...] PM EDT) Specimen Source/ Description STOOL STOOL [facility] Special Requests None [facility] Culture/Test NO SALMONELLA, SHIGELLA OR CAMPYLOBACTER ISOLATED [facility] Report Status 09/06/2018 FINAL [facility] Stool (Stool) 09/03/2018 3:4 5 PM EDT 09/03/2018 4:53 PM EDT us Ashely Fields PA-C LAB MICROBIOLOGY CULTURE ORDERA BLES Final Result Performing Organization Address City/[facility]/ZIP Co de Phone Number [address] [address] * Ova and parasites, stool (09/03/2018 3:45 PM EDT) Specimen Source/ Description STOOL STOOL [facility] Special Requests None [facility] DIRECT EXAM No parasites found by Trichrome Stain [facility] DIRECT EXAM NO PARASITES FOUND BY DIRECT OR CONCENTRATION METHODS [facility] Report Status 09/10/2018 FINAL [facility] Stool (Stool) 09/03/2018 3:4 5 PM EDT 09/03/2018 4:53 PM EDT us Ashely Fields PA-C LAB BODY FLUIDS AND STOOL ORDER GRACY Final Result Performing Organization Address [facility]/ZIP Co de Phone Number [address] [address] * H. pylori antigen, stool (09/03/2018 3:45 PM EDT) ST H.PYLORI AG Negative Negative [facility] DPT OF LAB MED AND PAT+ Stool (Stool) 09/03/2018 3:4 5 PM EDT 09/03/2018 4:54 PM EDT us Ashely Fields PA-C LAB BODY FLUIDS AND STOOL ORDER GRACY Final Result [facility] DPT OF LAB MED AND PAT+ [address] [address] [place] [address] * Giardia antigen screen (09/03/2018 3:45 PM EDT) ST GIARDIA ANTIGEN Negative Negative [facility] DPT OF LAB MED AND PAT+ Stool (Stool) 09/03/2018 3:4 5 PM EDT 09/03/2018 4:54 PM EDT us Ashely Fields PA-C LAB BODY FLUIDS AND STOOL ORDER GRACY Final Result Performing Organization Address City/[facility]/ZIP Co de Phone Number [facility] DPT OF LAB MED AND PAT+ [address] [place] [address] * Calprotectin, stool (09/03/2018 3:45 PM EDT) CALPROTECTIN <15.6 <=50.0 (Normal) mcg/g [facility] DPT OF LAB MED AND PAT+ Stool (Stool) 09/03/2018 3:4 5 PM EDT 09/03/2018 4:54 PM EDT us Ashely Fields PA-C LAB BODY FLUIDS AND STOOL ORDER GRACY Final Result Performing Organization Address [facility] Co de Phone Number [facility] DPT OF LAB MED AND PAT+ [address] [place] [address] * Ova and parasites, stool (08/30/2018 5:00 PM EDT) Specimen Source/ Description STOOL PARA SIMRAN STOOL [facility] Special Requests None [facility] DIRECT EXAM No parasites found by Trichrome Stain [facility] DIRECT EXAM NO PARASITES FOUND BY DIRECT OR CONCENTRATION METHODS [facility] Report Status 09/10/2018 FINAL [facility] Stool (Stool) 08/30/2018 5:0 0 PM EDT 09/03/2018 4:50 PM EDT us Ashely Fields PA-C LAB BODY FLUIDS AND STOOL ORDER GRACY Final Result Performing Organization Address City/[facility]/ZIP Co de Phone Number [facility] [address] [place] [address] * Ova and parasites, stool (08/28/2018 7:00 PM EDT) Specimen Source/ Description STOOL PARA SIMRAN STOOL [facility] Special Requests None [facility] DIRECT EXAM No parasites found by Trichrome Stain [facility] DIRECT EXAM NO PARASITES FOUND BY DIRECT OR CONCENTRATION METHODS [facility] Report Status 09/10/2018 FINAL [facility] Stool (Stool) 08/28/2018 7:0 0 PM EDT 09/03/2018 4:47 PM EDT us Ashely Fields PA-C LAB BODY FLUIDS AND STOOL ORDER GRACY Final Result Performing Organization Address City/[facility]/ZIP Co de Phone Number [address] [address] * CBC (08/28/2018 4:00 PM EDT) WBC 6.78 3.40 - 11.20 K/uL [facility] RBC 4.69 3.80 - 4.80 M/uL [facility] HGB 13.3 12.0 - 15.0 g/dL [facility] HCT 39.7 36.0 - 46.0 % [facility] PLT 273 130 - 400 K/uL [facility] MCV 84.6 79.0 - 98.0 fL [facility] MCH 28.4 27.0 - 34.8 pg [facility] MCHC 33.5 31.5 - 36.0 g/dL [facility] RDW 12.9 10.8 - 14.6 % [facility] MPV 10.7 9.4 - 12.4 fl [facility] NRBC 0.00 /100 WBCs [facility] ABSOLUTE NRBC 0.00 K/uL [facility] Blood 08/28/2018 4:00 PM EDT 08/28/2018 4:14 PM EDT us Ashely Fields PA-C LAB BLOOD BKR ORDERABLES Final Result [address] [address] * TSH (08/28/2018 4:00 PM EDT) TSH 1.94 0.27 - 4.20 uIU/mL [facility] Blood 08/28/2018 4:00 PM EDT 08/28/2018 4:14 PM EDT us Ashely SANON-C LAB BLOOD BKR ORDERABLES Final Result Performing Organization Address City/[facility]/ZIP Co de Phone Number [address] [address] * C-Reactive Protein (08/28/2018 4:00 PM EDT) C REACTIVE PROTEIN 0.8 0.0 - 4.0 mg/L [facility] Blood 08/28/2018 4:00 PM EDT 08/28/2018 4:14 PM EDT Ashely SANON-[place] LAB BLOOD BKR ORDERABLES Final Result Performing Organization Address City/[facility] Co de Phone Number [address] [address] * Comprehensive metabolic panel (08/28/2018 4:00 PM EDT) SODIUM 141 133 - 146 mmol/L [facility] POTASSIUM 4.3 3.3 - 5.1 mmol/L [facility] CHLORIDE 102 96 - 108 mmol/L [facility] CO2 26 21 - 35 mmol/L [facility] BUN 10 6 - 19 mg/dL [facility] CREATININE 0.50 0.5 - 1.5 mg/dL [facility] GLUCOSE 95 70 - 99 mg/dL [facility] ALBUMIN 4.7 3.9 - 4.8 g/dL [facility] TOTAL PROTEIN 7.5 6.5 - 8.0 g/dL [facility] CALCIUM 9.3 8.4 - 10.3 mg/dL [facility] ALKALINE PHOSPHATASE 46 39 - 117 U/L [facility] TOTAL BILIRUBIN 0.3 0.0 - 1.2 mg/dL [facility] AST 22 0 - 37 U/L [facility] ALT 14 0 - 40 U/L [facility] GLOBULIN 2.8 1 - 4.8 g/dL [facility] EGFR >120 >59 mL/min/1.7 3m2 [facility] Comment:If patient is black, multiply result by 1.159. Estimated glomerular filtration rate calculated using the CKD-EPI equation. ANION GAP 17 10 - 20 mmol/L [facility] Blood 08/28/2018 4:00 PM EDT 08/28/2018 4:14 PM EDT us Ashely Fields PA-C LAB BLOOD BKR ORDERABLES Final Result [address] [address] * Tissue transglutaminase IgA (08/28/2018 4:00 PM EDT) TTG IGA ANTIBODY <1.2 <4.0 (Negative) U/mL [facility] DPT OF LAB MED AND PAT+ Blood 08/28/2018 4:00 PM EDT 08/28/2018 4:13 PM EDT us Ashely Fields PA-C LAB BLOOD BKR ORDERABLES Final Result Performing Organization Address City/[facility]/ZIP Co de Phone Number [facility] DPT OF LAB MED AND PAT+ [address] [place] [address] * Immunoglobulin A (08/28/2018 4:00 PM EDT) IgA 154 70 - 400 mg/dL [facility] Blood 08/28/2018 4:00 PM EDT 08/28/2018 4:14 PM EDT us Ashely Fields PA-C LAB BLOOD BKR ORDERABLES Final Result Performing Organization Address City/[facility]/ZIP Co de Phone Number [address] [address] documented in this encounter Visit Diagnoses Diagnosis Diarrhea, unspecified type- Primary documented in this encounter Care Teams Manager Food Beverage Relationship Specialty Start Date End Date Idris Frias DO [email or web address] PCP - General 09/12/17 Idris Frias DO [address] [place] [address] [email or web address] Insurance Assigned Provider 02/29/24 documented as of this encounter Additional Source Comments The information contained in this document represents components of the legal health record. It is not the complete legal health record.[facility]
--- OUTSIDE RECORDS SUMMARY | 2025-11-24 12:19 | XMS_ITS | Encounter Summary ---
Author Organization [facility] Address [address] [facility] [address] [place] [address] Phone Care Team Providers Care Flat Folding Machine Operator Name Role Phone Idris Frias DO Primary Care Provider [phone] Idris Frias DO Unavailable Encounter Details Date Type Department Care Team (Late st Contact Info) Description 11/26/2023 [address] [facility], Ct Scan - [address] [address] Social History Tobacco Use Types Packs/Day Years [...] on filedocumented in this encounter Care Teams Flat Folding Machine Operator Relationship Specialty Start Date End Date Idris Frias DO [email or web address] PCP - General 09/12/17 Idris Frias DO [address] [place] [address] [email or web address] Insurance Assigned Provider 02/29/24 documented as of this encounter Additional Source Comments The information contained in this document represents components of the legal health record. It is not the complete legal health record.[facility]
--- OUTSIDE RECORDS SUMMARY | 2025-11-24 12:19 | XMS_ITS | Encounter Summary ---
Author Organization [facility] Address [address] [facility] [address] [place] [address] Phone Care Team Providers Care Brand Designer Name Role Phone PariIdris carbajal Primary Care Provider [phone] AltagraciaIdris Unavailable Reason for Referral * MRI/CAT Scan - Closed Specialty Diagnoses / Procedures Referred By Florian courtney Referred To Contact Radiology Diagnoses Unspecified fracture of right wrist and hand, subsequent encounter for fracture with routine healing Procedures MRI Wrist (Right) Ne Martin PA [address] [place] [address] Phone: tel: fax: Referral ID Status Reason Start Date Expiration Date Visits Re quested Visits Authorized [id number] Closed 04/09/2023 04/08/2024 1 1 Encounter Details Date Type Department Care Team (Latest Contact Info) Description 04/09/2023 Transcribe Orders Virtual Department [address] [place] [address] Ne Martin PA [address] [facility] [place] [address] [place] [address] Unspecified fracture of right wrist and hand, [...] MRI of the right wrist. [place] [facility] [place]TREMITY Final Resu lt documented in this encounter Visit Diagnoses Diagnosis Unspecified fracture of right wrist and hand, subsequent encounter for fracture with routine healing- Primary Unspecified fracture of right wrist and hand, subsequent encounter for fracture with routine healing documented in this encounter Care Teams Brand Designer Relationship Specialty Start Date End Date Idris Frias DO PCP - General 09/12/17 Idris Frias DO [address] [place] [address] [email or web address] Insurance Assigned Provider 02/29/24 documented as of this encounter Additional Source Comments The information contained in this document represents components of the legal health record. It is not the complete legal health record.[facility]
--- OUTSIDE RECORDS SUMMARY | 2025-11-24 12:19 | XMS_ITS | Encounter Summary ---
Author Organization [facility] Address [address] [address] Phone Care Team Providers Care Apartment Rental Clerk Name Role Phone Idris Frias DO Primary Care Provider [phone] Idris Frias DO Unavailable Encounter Details Date Type Department Care Team (Late st Contact Info) Description 04/13/2018 Procedure Pass [facility], Ct Scan - [facility] [address] [place] [address] Social History Tobacco Use Types Packs/Day Years [...] on filedocumented in this encounter Care Teams Apartment Rental Clerk Relationship Specialty Start Date End Date Idris Frias DO PCP - General 09/12/17 Idris Frias DO [address] [place] [id number] [email or web address] Insurance Assigned Provider 02/29/24 documented as of this encounter Additional Source Comments The information contained in this document represents components of the legal health record. It is not the complete legal health record.[facility]
--- OUTSIDE RECORDS SUMMARY | 2025-11-24 12:19 | XMS_ITS | Encounter Summary ---
Author Organization [facility] Address [address] [facility] [address] [place] [address] Phone Care Team Providers Care Double Bottom Driver Name Role Phone Idris Frias DO Primary Care Provider [phone] Idris Frias DO Unavailable Encounter Details Date Type Department Care Team (Late st Contact Info) Description 11/27/2023 Procedure Pass [facility], [address] [place] [address] Social History Tobacco Use Types Packs/Day Years [...] on filedocumented in this encounter Care Teams Double Bottom Driver Relationship Specialty Start Date End Date Idris Frias DO [email or web address] PCP - General 09/12/17 Idris Frias DO [address] [place] [address] [email or web address] Insurance Assigned Provider 02/29/24 documented as of this encounter Additional Source Comments The information contained in this document represents components of the legal health record. It is not the complete legal health record.[facility]
--- OUTSIDE RECORDS SUMMARY | 2025-11-24 12:19 | XMS_ITS | Clinical Summary ---
Author Organization [facility] Address [address] [facility] [address] [place] [address] Phone Care Team Providers Care Named Account Executive Name Role Phone Idris Frias DO Primary Care Provider [phone] Idris Frias DO Unavailable Allergies Active Allergy [...] topic Medical Devices Not on file Insurance [facility] [place] [address] [facility] [employer] Care Teams Named Account Executive Relationship Specialty Start Date End Date Idris Frias DO PCP - General 09/12/17 Idris Frias DO [address] [place] [address] Insurance Assigned Provider 02/29/24 Additional Source Comments The information contained in this document represents components of the legal health record. It is not the complete legal health record.[facility]
--- OUTSIDE RECORDS SUMMARY | 2025-11-24 12:19 | XMS_ITS | Encounter Summary ---
Author Organization [facility] Address [address] [address] Phone Care Team Providers Care Senior Ui Designer Name Role Phone Idris Frias DO Primary Care Provider [phone] Idris Frias DO Unavailable Encounter Details Date Type Department Care Team (Late st Contact Info) Description 04/09/2023 Procedure Pass [facility], [address] [place] [address] Social History Tobacco Use Types Packs/Day Years [...] on filedocumented in this encounter Care Teams Senior Ui Designer Relationship Specialty Start Date End Date Idris Frias DO PCP - General 09/12/17 Idris Frias DO [address] [place] [address] [email or web address] Insurance Assigned Provider 02/29/24 documented as of this encounter Additional Source Comments The information contained in this document represents components of the legal health record. It is not the complete legal health record.[facility]
--- OUTSIDE RECORDS SUMMARY | 2025-11-24 12:19 | XMS_ITS | Clinical Summary ---
Author Organization [address] [facility] Address [address] [place] [address] Phone Care Team Providers Care Piano Stringer Name Role Phone Idris Frias Primary Care Provider Allergies Active Allergy Reactions Criticality Noted Date [...] patient's age to complete this topic Insurance [facility] Care Teams Piano Stringer Relationship Specialty Start Date End Date Idris Frias DO [address] [facility] [address] [place], [place] PCP - General 07/09/23
--- OUTSIDE RECORDS SUMMARY | 2025-11-24 12:19 | XMS_ITS | Encounter Summary ---
Author Organization [facility] Address [address] [address] Phone Care Team Providers Care Chuck Boner Name Role Phone Idris Frias DO Primary Care Provider [phone] Idris Frias DO Unavailable Encounter Details Date Type Department Care Team (Late st Contact Info) Description 04/13/2018 Procedure Pass [facility], Ct Scan - [facility] [address] [place] [address] Social History Tobacco Use Types Packs/Day Years [...] on filedocumented in this encounter Care Teams Chuck Boner Relationship Specialty Start Date End Date Idris Frias DO PCP - General 09/12/17 Idris Frias DO [address] [place] [id number] [email or web address] Insurance Assigned Provider 02/29/24 documented as of this encounter Additional Source Comments The information contained in this document represents components of the legal health record. It is not the complete legal health record.[facility]
--- OUTSIDE RECORDS SUMMARY | 2025-11-24 12:19 | XMS_ITS | Encounter Summary ---
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 Procedures MRI Brain Ne Martin PA [address] [facility] [place] [address] Phone: tel: fax: Referral ID Status Reason Start Date Expiration Date Visits Re quested Visits Authorized [id number] Closed 11/27/2023 1 1 Encounter Details Date Type Department Care Team (Latest Contact Info) Description 11/27/2023 Transcribe Orders Virtual Department [address] [place] [address] Ne Martin PA [address] [facility] [place] [address] Persistent migraine aura without cerebral infarction, not [...] clinician's provided indication for this examination in [facility]:Outside Radiology Order; Persistent migraine aura without cerebralinfarction, [...] region documented in this encounter Care Teams Rib Stiffener And Heel Dipper Relationship Specialty Start Date End Date Idris Frias DO PCP - General 09/12/17 Idris Frias DO [address] [place] [address] Insurance Assigned Provider 02/29/24 documented as of this encounter Additional Source Comments The information contained in this document represents components of the legal health record. It is not the complete legal health record.[facility]
--- OUTSIDE RECORDS SUMMARY | 2025-11-24 12:19 | XMS_ITS | Encounter Summary ---
Author Organization [facility] Address [address] [facility] [address] [place] [address] Phone Care Team Providers Care Drawer In Name Role Phone PariIdris carbajal Primary Care Provider [phone] PariIdris carbajal Unavailable Reason for Referral * MRI/CAT Scan - Closed Specialty Diagnoses / Procedures Referred By Florian courtney Referred To Contact Radiology Diagnoses Radiculopathy, cervical region Procedures MRI Cervical Spine Ne Martin PA [address] [facility] [place] [address] Phone: tel: fax: Referral ID Status Reason Start Date Expiration Date Visits Re quested Visits Authorized [id number] Closed 12/14/2023 1 1 Encounter Details Date Type Department Care Team (Latest Contact Info) Description 12/14/2023 Transcribe Orders Virtual Department [address] [place] [address] Ne Martin PA [address] [facility] [place] [address] Radiculopathy, cervical region (Primary Dx) Social History [...] nos documented in this encounter Care Teams Drawer In Relationship Specialty Start Date End Date Idris Frias DO PCP - General 09/12/17 Idris Frias DO [address] [place] [phone] Insurance Assigned Provider 02/29/24 documented as of this encounter Additional Source Comments The information contained in this document represents components of the legal health record. It is not the complete legal health record.[facility]
--- OUTSIDE RECORDS SUMMARY | 2025-11-24 12:19 | XMS_ITS | Encounter Summary ---
Author Organization [facility] Address [address] [facility] [address] [place] [address] Phone Care Team Providers Care New Account Interviewer Name Role Phone Idris Frias DO Primary Care Provider [phone] Idris Frias DO Unavailable Encounter Details Date Type Department Care Team (Late st Contact Info) Description 11/26/2023 Procedure Pass [facility], Ct Scan - [address] [address] Social History Tobacco Use Types Packs/Day Years [...] on filedocumented in this encounter Care Teams New Account Interviewer Relationship Specialty Start Date End Date Idris Frias DO [email or web address] PCP - General 09/12/17 Idris Frias DO [address] [place] [address] Insurance Assigned Provider 02/29/24 documented as of this encounter Additional Source Comments The information contained in this document represents components of the legal health record. It is not the complete legal health record.[facility]
--- OUTSIDE RECORDS SUMMARY | 2025-11-24 12:19 | XMS_ITS | Encounter Summary ---
Author Organization [facility] Address [address] [facility] [address] [address] Phone Care Team Providers Care Billposter Name Role Phone Idris Frias DO Primary Care Provider [phone] Idris Frias DO Unavailable Encounter Details Date Type Department Care Team (Late st Contact Info) Description 12/14/2023 Procedure Pass [facility], [address] [address] Social History Tobacco Use Types Packs/Day Years [...] on filedocumented in this encounter Care Teams Billposter Relationship Specialty Start Date End Date Idris Frias DO PCP - General 09/12/17 Idris Frias DO [address] [place] [address] Insurance Assigned Provider 02/29/24 documented as of this encounter Additional Source Comments The information contained in this document represents components of the legal health record. It is not the complete legal health record.[facility]
--- OUTSIDE RECORDS SUMMARY | 2025-11-24 12:20 | XMS_ITS | Data Portability ---
Author Organization [facility], Telehealth Patient Home Address [address] [place] [address] Assessment Encounter Date Assessment Date Assessment LastModified by Organization Details LastModified Time 01/15/2025 01/15/2025 Patient agreed and verbally consents to this audio and video Telehealth appt via a secure platform [email or web address] Not available 01/15/2025 11:45:32 Plan of Treatment Reminders Order Date Submit Date Provider Last Modified By Organization Details Last Modified Time Details Appointments None recorded. Lab CMP, serum or plasma 2024 025 AMARA [facility] (Centralized Electronic Ordering - All Locations), Patient Can Go To The Location Of Their Choice, 5 08:32:02 C3 + C4 (complement ), serum 2024 025 rtryba [facility] (Centralized Electronic Ordering - All Locations), Patient Can Go To The Location Of Their Choice, 10:46:23 C-reactive protein, quantitativ e, serum or plasma 2024 025 rtryba [facility] (Centralized Electronic Ordering - All Locations), Patient Can Go To The Location Of Their Choice, 10:46:24 dsDNA Ab, serum 2024 025 rtryba [facility] (Centralized Electronic Ordering - All Locations), Patient Can Go To The Location Of Their Choice, 10:46:24 ESR (erythrocyt e sedimentati on rate), blood 2024 025 rtryba [facility] (Centralized Electronic Ordering - All Locations), Patient Can Go To The Location Of Their Choice, 10:46:24 DEANNA + rf (antinuclea r antibodies + rheumatoid factor), quantitativ e, serum 2024 rtryba [facility] (Centralized Electronic Ordering - All Locations), Patient Can Go To The Location Of Their Choice, 10:46:24 ccp (cyclic citrullinat ed peptide) iga+igg, serum 2024 rtryba [facility] (Centralized Electronic Ordering - All Locations), Patient Can Go To The Location Of Their Choice, 10:46:23 goyal Ab, serum 2024 rtryba [facility] (Centralized Electronic Ordering - All Locations), Patient Can Go To The Location Of Their Choice, 10:46:24 sjogren antibody panel (ssa, ssb, ro, la), serum 2024 rtryba [facility] (Centralized Electronic Ordering - All Locations), Patient Can Go To The Location Of Their Choice, 10:46:23 CK (creatine kinase), total, serum 2024 rtryba [facility] (Centralized Electronic Ordering - All Locations), Patient Can Go To The Location Of Their Choice, 10:46:23 magnesium, serum or plasma 2024 025 rtryba [facility] (Centralized Electronic Ordering - All Locations), Patient Can Go To The Location Of Their Choice, 10:46:23 phosphorus, serum or plasma 2024 025 rtryba [facility] (Centralized Electronic Ordering - All Locations), Patient Can Go To The Location Of Their Choice, 10:46:24 PTH (parathyroi d hormone), intact + calcium, serum or plasma 2024 025 rtryba [facility] (Centralized Electronic Ordering - All Locations), Patient Can Go To The Location Of Their Choice, 10:46:24 zinc, serum or plasma 2024 rtryba [facility] (Centralized Electronic Ordering - All Locations), Patient Can Go To The Location Of Their Choice, 10:46:23 lyme disease igg+igm, serum, reflex western blot 2024 rtryba [facility] (Centralized Electronic Ordering - All Locations), Patient Can Go To The Location Of Their Choice, 10:46:23 anaplasma phagocytoph ilum + ehrlichia chaffeensis DNA panel, blood 2024 rtryba [facility] (Centralized Electronic Ordering - All Locations), Patient Can Go To The Location Of Their Choice, 10:46:23 Referral None recorded. Procedures None recorded. Surgeries None recorded. Imaging MRI, lumbar spine, w/o contrast - Not Required Procedure codes: 16374 Call Reference #: [id number] Resolution: Completed on 09/29/2024 at 10:07 am. Call ref #[id number] 6. complicatio n post epidural causing residual nerve pain and damage 2023 hrubner [facility], [address] [place] [address], [address], 08:26:11 electromyog lizzy + nerve conduction study - left leg, complicatio n post-epidur al causing nerve damage 2023 hrubner Roman Ward MD, [address] [place], [address], 4 08:27:46 Medication Orders fluconazole 150 mg tablet 2024 [facility], [address] [place], [address], 5 08:28:00 ondansetron 8 mg disintegrat ing tablet 2024 [facility], [address] [place], [address], 21:30:21 prednisone 10 mg tablet 2024 025 [facility], [address] [place], [address], 11:57:32 levofloxaci n 500 mg tablet 2024 025 [facility], [address] [place], [address], 11:57:17 codeine 10 mg-guaifene sin 100 mg/5 mL oral liquid 2024 025 [facility], [address] [place], [address], 11:57:14 Patient TargetsNo targets recorded. Patient InstructionsNo instructions recorded. Reason for Referral None Reported. Results Created Date Observation Date Name Description Value Unit Range Abnormal Flag Note LastModifiedBy Organization Detail LastModifiedTime 10/05/2010/02/2024 MRI, lumba r spine , w/o contr ast No observ ation record ed. [email or web address] [facility] [address] [address], [place], [address], 10/06/2024 11:35:36 10/09/20 24 10/08/2024 elect romyo gram + nerve condu ction study No observ ation record ed. [email or web address] [facility] [address] [facility] [address], [place], [address], 10/09/2024 10:41:00 11/20/20 24 11/20/2024 XR, sacru m + coccy x No observ ation record ed. [facility] (Medical Records) [address] [facility], [place], [address], 11/20/2024 09:51:09 12/10/19 25 12/09/2024 MRI, lumba r spine , w/o contr ast No observ ation record ed. [facility] [address] [place], [address], 12/10/2024 19:47:45 12/10/19 25 12/09/2024 MRI, sacru m, w/o contr ast No observ ation record ed. [facility] [address] [place], [address], 12/10/2024 19:43:23 09/05/20 25 09/05/2025 XR, chest , 2 view No observ ation record ed. [facility] [address] [place], [address], 09/07/2025 08:46:32 11/10/20 25 11/10/2025 CT, head + brain , w/o contr ast No observ ation record ed. [facility] (Medical Records) [address] [place], [address], 11/10/2025 16:50:23 Result Notes None recorded. Problems Name Problem SNOMED Code Status Onset Date Resolution Date Notes Provider Name and Address Organization Details Recorded Time Transien t cerebral ischemia 997716165 Active 2017,2007 , Not Available [facility] 4 06:14:14 Infectio us mononucl eosis 151434282 Active 2017,1998 Not Available [facility] 4 06:14:14 Fracture of bone 004326537 Active 2017 wrist, ankle Not Available [facility] 4 06:14:14 Irritabl e bowel syndrome 28884347 Active 2017 Vs. Mild crohns Not Available [facility] 4 06:14:14 Polyp of colon 30856573 Active 2017 Not Available [facility] 4 06:14:15 Disorder of knee 133198273 Active 2017 recurrent knee dislocati ons 9393-2697 Not Available [facility] 4 06:14:14 Cluster headache 232019002 Active 2017 Not Available [facility] 4 06:14:14 Cyst of ovary 59087754 Active 2017 Not Available [facility] 4 06:14:15 Vertigo 345571121 Active 2017 Not Available [facility] 4 06:14:15 Insomnia 776955348 Active 2021 Not Available [facility] 4 06:14:14 Abdomina l pain 76326710 Active 2022 Not Available [facility] 4 06:14:14 COVID-19 576947523 Active 2022 Not Available [facility] 4 06:14:15 Nausea and vomiting 84266397 Active 2022 Not Available [facility] 4 06:14:14 Pneumoni a 475016999 Active 2022 Not Available [facility] 4 06:14:14 Pneumoni a caused by SARS-CoV -2 10176406938 7498748 Active 2022 Not Available [facility] 4 06:14:15 Dyspnea 111484346 Active 2022 Not Available [facility] 4 06:14:14 Fracture at wrist and/or hand level 377187567 Active 2022 Not Available [facility] 4 06:14:14 Ganglion cyst of right wrist 79038472492 9109 Active 2022 Not Available [facility] 4 06:14:14 Acute pharyngi tis 641845891 Active 2022 Not Available [facility] 4 06:14:14 Acute urinary tract infectio n 384183353 Active 2022 Not Available [facility] 4 06:14:15 Cervico- occipita l neuralgi a 27275277 Active 2022 Not Available [facility] 4 06:14:15 Headache 35986890 Active 2023 Not Available [facility] 4 06:14:14 Migraine 00745369 Active 2023 Not Available [facility] 4 06:14:14 Numbness of face 558445555 Active 2023 TALITA WYATT [address] [place], [address], [facility] 4 09:18:14 Cervical radiculo pieter 01869755 Active 2023 TALITA WYATT [address] [place], [address], [facility] 4 08:36:12 Gastroes ophageal reflux disease 469743777 Active 2023 TALITA WYATT [address] [place], [address], [facility] 4 12:09:22 Restless legs syndrome 11278481 Active 2023 TALITA WYATT [address] [place], [address], [facility] 4 09:56:39 Pain in left lower limb 973471406 Active 2023 TALITA WYATT [address] [place], [address], [facility] 4 09:56:55 Lumbar radiculo pieter 476118838 Active 2023 TALITA WYATT [address] [place], [address], [facility] 4 09:57:13 Fracture of sacrum 104919501 Active 2023 TALITA WYATT [address] [place], [address], [facility] 4 15:53:42 Chronic sinusiti s 25550826 Active 2024 TALITA WYATT [address] [place], [address], [facility] 5 16:25:05 Systemic lupus erythema tosus 90708449 Active 2024 TALITA WYATT [address] [place], [address], [facility] 5 10:38:51 Muscle pain 16569767 Active 2024 TALITA WYATT [address] [place], [address], [facility] 5 10:43:52 Bronchit is 39263454 Active 2024 TALITA WYATT [address] [place], [address], [facility] 5 11:17:50 Acute right otitis media 002926239 Active 2024 TALITA WYATT [address] [place], [address], [facility] 5 08:47:30 Hypokale jahaira 22550619 Active 2024 TALITA WYATT [address] [place], [address], [facility] 5 13:04:16 Acute cough Active 2024 TALITA WYATT [address] [place], [address], [facility] 5 13:06:06 Acute vomiting 68984897 Active 2024 TALITA YWATT [address] [place], [address], [facility] 5 13:06:17 Problem Notes None recorded. Procedures Surgical History Date Name Laterality Status Provider Name and Address Organization Details Recorded Time 11/25/19 Lat retinacular release open completed Ilana Brenner [facility] 02/25/2018 08:38:49 Cholecystectomy completed Ilana Brenner [facility] 02/25/2018 08:30:07 Tonsillectomy completed Ilana Brenner [facility] 02/25/2018 08:36:18 Adenoid Surgery completed Ilana Brenner MA [facility] 02/25/2018 08:36:50 Knee Surgery completed Ilana Brenner MA [facility] 02/25/2018 08:40:13 Imaging Results None recorded. Procedure Notes None recorded. Medical Equipment None Reported. Allergies Allergen ID Allergen Name Allergen Category Reaction Reaction Severity Criticality Documentation Date Start Date Code Code System Note Provider Name and Address Organization Details Recorded Time 92079 sulfameth oxazole / trimethop rim medicatio n hives Not available Not available 10/25/20251999 67551 RxNorm Not Available [email or web address] - prod 5 07:15:23 09024 tramadol medicatio n Not available Not available Not available 10/25/20252024 34973 RxNorm Not Available [employer] - prod 5 07:15:23 28263 sulfameth oxazole medicatio n hives moderate high 11/12/20252024 04928 RxNorm Not Available [employer] - prod 5 10:07:25 89670 trimethop rim medicatio n hives moderate high 11/12/20252024 46528 RxNorm Not Available [employer] prod 5 10:07:25 04188 metoclopr amide Not available Not available Not available high 11/12/20252024 6915 RxNorm Not Available [employer] - prod 5 10:07:25 77788 ethinyl estradiol medicatio n Not available Not available high 11/12/20252024 4124 RxNorm Not Available [employer] prod 5 10:07:25 98396 norgestim ate medicatio n Not available Not available high 11/12/20252024 63040 RxNorm Not Available [employer] 5 10:07:25 6452 Toradol medicatio n Not available Not available Not available 01/23/2023 60370 RxNorm anxie ty; sever e anxie ty TALITA WYATT [address] [place], [address], [facility] 3 10:34:53 765 Ortho Tri-Cycle n (28) medicatio n Not available Not available Not available 02/25/2018 Ialna knowles [facility] 8 08:28:30 766 naproxen medicatio n Not available Not available Not available 02/25/2018 7258 RxNorm Ilana knowles [facility] 8 08:28:39 767 Bactrim medicatio n Not available Not available Not available 02/25/2018 11359 9 RxNorm Ilana knowles [facility] 8 08:28:47 Medications Name Sig Start Date [...] 10 mL every 4 hours by oral route as needed. 2024 active Not Available Not Available Not Avai lable gabapentin 100 mg capsule Take 1 capsule [...] Updated DateTime 5 162.56 cm 28.3 kg/m2 05595.7 4 g 80 /min 98 % 118/70 mm[Hg] Baldomero Bernal [facility] 5 11:59:31 Date Recorded Body height Body mass index (BMI) Body weight Heart rate Oxygen saturation Systolic And Diastolic Provider Name and Address Organization Details Last Updated DateTime 4 162.56 cm 28.8 kg/m2 41250.5 2 g 72 /min 98 % 112/78 mm[Hg] Heena Gasca [facility] 4 09:47:25 Social History Question Answer Notes LastModified by Organizat ion Details LastModified Time Tobacco Smoking Status Never Smoker Not Available [facility] 09/27/2020 03:36:23 What Was The Date Of [...] 50 mcg/0.25mL dose 06/29/2021 completed Not Available [facility] 06:14:15 Tdap 05/13/2018 completed Not Available [facility] 11/27/2023 06:14:15 Past Encounters Encounter ID Performer Location Encounter Start Date Encounter Closed Date Diagnosis/Indication Diagnosis SNOMED-CT Code Diagnosis ICD10 Code Diagnosis IMO Codes Diagnosis Note [id number] February LYNSEY Parkinson [facility] [address] [facility] [address] 02/25/2018 14:16:25 02/25/2018 15:33:43 Pre-surgery evaluation 822220649 Z01.818 cleared for surgery 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 Headache 37767523 R51 monitor Lethargy 803372423 R53.8 3 monitor Neck pain 28905294 M54.2 monitor conservati ve tx Laceration of head 73576 8000 S01.91XD healing well good hygiene monitor for signs of cellulitis [id number] Idris Frias [facility] [address] [facility] [address] 08/29/2018 09:15:48 08/29/2018 10:05:41 Pityriasis versicolor 99161130 B36.0 [id number] Idris Frias [facility] [address] [facility] [address] 09/11/2019 11:12:50 09/11/2019 11:41:37 Insomnia 289796039 G47.00 apparently induced by fertility treatment will continue zolpidem and then will d/c if occurs Plantar fa sciitis of right foot 2362385438 8120931 M72.2 [id number] Idris Frias [facility] [address] [facility] [address] 05/04/2020 13:32:04 05/04/2020 15:33:15 Cough 55933661 R05 patient tested negative for COVID > she does not want a re test at this time may have tested to early or may be a viral bronchitis vs a walking pna will treat with Z wilfredo and see if there is improvemen t Tight chest 83419074 R07 .89 as above [id number] dIris Frias [facility] [address] [facility] [address] 01/11/2021 10:55:25 01/11/2021 13:31:06 Tinea corporis 35063798 B35.4 will send in referral to derm for Dr. Washington to see what the underlying cause is of the rash looks like tinea, but has failed treatment prior with antifungal so would like her to see specialist Otalgia of left ear 1089 221345 071447 H92.02 will trial OTC medication s as discussed for fluid and full up with me if no improvemen t [id number] Idris Frias [facility] [address] [facility] [address] 07/17/2021 11:06:37 07/17/2021 14:04:10 Insomnia 315177867 G47.00 still very effective for the patient for her insomniaok ay with insurance for a 30 day supply Rhinitis medicamentosa 35531592 J31.0 will start on medrol dose wilfredo for rebound nasal congestion related to overuse of afrin productsif no improvemen t will submit referral to ENT [id number] Idris Frias [facility] [address] [facility] [address] [place] [address] 01/23/2023 08:16:50 01/23/2023 11:54:59 Abdominal pain 11664151 R10.0 will fu with GI COVID-19 371781254 U07.1 no longer testing positive Nausea and vomiting 1692 1999 R11.2 will start on ondansetro n Pneumonia caused by SARS-CoV-2 3961835985 62172318 J12.82 was not treated by ER though they said she needed an abxwill send in doxycyclin e Insomnia 974070782 G47.0 0 still very effective for the patient for her insomniaok ay with insurance for a 30 day supply [id number] Idris Frias [facility] [address] [facility] [address] 11/13/2023 10:33:53 11/13/2023 11:24:30 Cervico-occipital neuralgia 82738015 M54.81 will set up with XR first [id number] Idris Frias [facility] [address] [facility] [address] [address] 09/28/2024 09:38:36 09/28/2024 10:04:15 Depression screening 201535202 Z13.31 SCREENING NEGATIVE Restless l egs syndrome 46236741 G25.81 recommende d workup first prior to attempting to try medication Pain in le ft lower limb 693234169 M79.605 will set up with MRI and EMG Lumbar radiculopathy 128 222339 M54.16 will [id number] Idris Frias DO [facility] [address] [facility] [address] 01/15/2025 09:22:32 01/15/2025 12:14:49 Pneumonia 044136221 J17 start on abx Nausea and vomiting 1692 1999 R11.2 will start on ondansetro n [id number] Idris Frias DO [facility] [address] [facility] [address] 02/03/2025 11:51:29 02/03/2025 14:15:36 Adult health examination 786998871 Z00.00 BP is excellent 118/70 R arm sitting [id number] Idris Frias DO [facility] [address] [facility] [address] 03/26/2025 10:19:20 03/26/2025 10:56:12 Pityriasis versicolor 20693488 B36.0 Systemic l upus erythematosus 93846753 M32.19 89856290 Muscle pain 25609797 M79 .10 63483 [id number] Idris Frias [facility] [address] [facility] [address] 11/10/2025 09:34:44 11/10/2025 15:28:46 Health Concerns Section Related Observation LastModified by Organization Detai ls LastModified Time None Recorded Concern Status LastModified by Organization Details LastModified Time None Recorded Advance Directives Directive None Recorded Payers Insurance Date Sequence Insurance Name Policy Number Policy De Oliveira Covered Member ID De Oliveira Member ID Guarantor Name 12/19/[address] [place] [address] [id number] Vanesa Pontbriant [id number] Vanesa Pontbriant 11/10/2025 1 [facility] [id number] Christopher Pontbriant [id number] Vanesa Pontbriant Notes Date Note Type Note Provider Name [...] on having another baby currently TALITA WYATT [address] [place] [address], [address], [facility] 09/28/2024 10:03:26 5 text/html ROS as noted in the HPI The patient is participating in this appointment via telemedicine communication with a phone call/video calling service ([email or web address])The patient consents to use of these platforms [...] flu, negative for RSV TALITA WYATT [address] [place], [address], [facility] 01/15/2025 11:48:16 5 text/html [...] routine dental apptsROS as noted in the HPI Fax: [facility] Kim at [facility] will have to stop the ambien, which she is awarewill wean off of it, half a tablet for the next few days and then d/c TALITA WYATT [address] [place], [address], [facility] 02/03/2025 12:41:55 5 text/html [...] fu after lab work TALITA WYATT [address] [place], [address], [facility] 03/26/2025 10:51:18 OBGyn Episode No OBEpisode recorded.
--- OUTSIDE RECORDS SUMMARY | 2025-11-24 12:20 | XMS_ITS | Continuity of Care Document ---
Author Organization [facility], [facility] Address [address] [place] [address] [place] [address] Assessment No assessment recorded. Plan of Treatment Reminders Order Date Submit Date Provider Last Modified By Organization Details Last Modified Time Details Appointments None record ed. Lab None record ed. Referral None record ed. Procedures None record ed. Surgeries None record ed. Imaging None record ed. Medication Orders None record ed. Patient TargetsNo targets recorded. Patient InstructionsNo instructions recorded. Reason for Referral None Reported. Results Created Date Observation Date Name Description Value Unit Range Abnormal Flag Note LastModifiedBy Organization Detail LastModifiedTime 11/10/20 25 11/10/2025 CT, head + brain , w/o contr ast No observ ation record ed. [facility] (Medical Records) [address] [place] [address], [id number], 11/10/2025 16:50:23 Result Notes None recorded. Problems Name Problem SNOMED Code Status Onset Date Resolution Date Notes Provider Name and Address Organization Details Recorded Time Transien t cerebral ischemia 849511204 Active 2017,2007 , Not Available [facility] 4 06:14:14 Infectio us mononucl eosis 291354543 Active 2017,1998 Not Available [facility] 4 06:14:14 Fracture of bone 883034613 Active 2017 wrist, ankle [facility] Available [facility] 4 06:14:14 Irritabl e bowel syndrome 34908104 Active 2017 Vs. Mild crohns Not Available [facility] 4 06:14:14 Polyp of colon 15858142 Active 2017 Not Available [facility] 4 06:14:15 Disorder of knee 460232361 Active 2017 recurrent knee dislocati ons 9989-2482 Not Available [facility] 4 06:14:14 Cluster headache 080603495 Active 2017 Not Available [facility] 4 06:14:14 Cyst of ovary 44289989 Active 2017 Not Available [facility] 4 06:14:15 Vertigo 278022560 Active 2017 Not Available [facility] 4 06:14:15 Insomnia 361289257 Active 2021 Not Available [facility] 4 06:14:14 Abdomina l pain 41226827 Active 2022 Not Available [facility] 4 06:14:14 COVID-19 240674731 Active 2022 Not Available [facility] 4 06:14:15 Nausea and vomiting 54331103 Active 2022 Not Available [facility] 4 06:14:14 Pneumoni a 404295887 Active 2022 Not Available [facility] 4 06:14:14 Pneumoni a caused by SARS-CoV -2 73804196201 7610849 Active 2022 Not Available [facility] 4 06:14:15 Dyspnea 356523960 Active 2022 Not Available [facility] 4 06:14:14 Fracture at wrist and/or hand level 145338632 Active 2022 Not Available [facility] 4 06:14:14 Ganglion cyst of right wrist 34656562633 9109 Active 2022 Not Available [facility] 4 06:14:14 Acute pharyngi tis 731231132 Active 2022 Not Available [facility] 4 06:14:14 Acute urinary tract infectio n 106373798 Active 2022 Not Available [facility] 4 06:14:15 Cervico- occipita l neuralgi a 95482245 Active 2022 Not Available [facility] 4 06:14:15 Headache 07970407 Active 2023 [facility] Available [facility] 4 06:14:14 Migraine 90603338 Active 2023 Not Available [facility] 4 06:14:14 Numbness of face 656188030 Active 2023 T[address] [place], [address], [facility] 4 09:18:14 Cervical radiculo pieter 42125643 Active 2023 TALITA [address]ATT [address] [place], [address], [facility] 4 08:36:12 Gastroes ophageal reflux disease 670511585 Active 2023 TAL[address] [place], [address], [facility] 4 12:09:22 Restless legs syndrome 52585899 Active 2023 TALITA [address] [place], [address], [facility] 4 09:56:39 Pain in left lower limb 904862325 Active 2023 TAL[address] [place], [address], [facility] 4 09:56:55 Lumbar radiculo pieter 947232985 Active 2023 TALITA [address] [place], [address], [facility] 4 09:57:13 Fracture of sacrum 697423634 Active 2023 TAL[address] [place], [address], [facility] 4 15:53:42 Chronic sinusiti s 09426889 Active 2024 TALITA [address] [place], [address], [facility] 5 16:25:05 Systemic lupus erythema tosus 54383769 Active 2024 TALITA [address] [place], [address], [facility] 5 10:38:51 Muscle pain 34921645 Active 2024 TALITA [address] [place], [address], [facility] 5 10:43:52 Bronchit is 06999092 Active 2024 TALITA [address] [place], [address], [facility] 5 11:17:50 Acute right otitis media 456506191 Active 2024 TALITA [address] [place], [address], [facility] 5 08:47:30 Hypokale jahaira 16654569 Active 2024 TALITA [address] [place], [address], [facility] 5 13:04:16 Acute cough Active 2024 TAL[address] [place], [address], [facility] 5 13:06:06 Acute vomiting 77338023 Active 2024 TALITA [address] [place], [address], [facility] 5 13:06:17 Problem Notes None recorded. Procedures Surgical History Date Name Laterality Status Provider Name and Address Organization Details Recorded Time 11/25/19 Lat retinacular release open completed Ilana Brenner [facility] 02/25/2018 08:38:49 Cholecystectomy completed Ilanaandrew Brenner [facility] 02/25/2018 08:30:07 Tonsillectomy completed Ilanaandrew Brenner [facility] 02/25/2018 08:36:18 Adenoid Surgery completed Ilanaandrew Brenner [facility] 02/25/2018 08:36:50 Knee Surgery completed [facility] Jordin [facility] 02/25/2018 08:40:13 Imaging Results None recorded. Procedure Notes None recorded. Medical Equipment None Reported. Allergies Allergen ID Allergen Name Allergen Category Reaction Reaction Severity Criticality Documentation Date Start Date Code Code System Note Provider Name and Address Organization Details Recorded Time 74381 sulfameth oxazole / trimethop rim medicatio n hives Not available Not available 10/25/20251999 35629 RxNorm Not Available [facility] [employer] - prod 5 07:15:23 83110 tramadol medicatio n Not available Not available Not available 10/25/20252024 08294 RxNorm Not Available [facility] [employer] - prod 5 07:15:23 32395 sulfameth oxazole medicatio n hives moderate high 11/12/20252024 08187 RxNorm Not Available [facility] [employer] - prod 5 10:07:25 52722 trimethop rim medicatio n hives moderate high 11/12/20252024 92847 RxNorm Not Available [facility] [employer] - prod 5 10:07:25 82693 metoclopr amide Not available Not available Not available high 11/12/20252024 6915 RxNorm Not Available [facility] [employer] - prod 5 10:07:25 91635 ethinyl estradiol medicatio n Not available Not available high 11/12/20252024 4124 RxNorm Not Available [employer] - prod 5 10:07:25 87411 norgestim ate medicatio n Not available Not available high 11/12/20252024 81721 RxNorm Not Available [facility] [employer] - prod 5 10:07:25 6452 Toradol medicatio n Not available Not available Not available 01/23/2023 81506 RxNorm anxie ty; sever e anxie ty TALITA W[address]ATT [address] [place], [address], [facility] 3 10:34:53 765 Ortho Tri-[employer]ycle n (28) medicatio n Not available Not available Not available 02/25/2018 Ilana Caraballobienvenido knowles [facility] 8 08:28:30 766 naproxen medicatio n Not available Not available Not available 02/25/2018 7258 RxNorm Ilanaandrew Caraballobienvenido eleni [facility] 8 08:28:39 767 Bactrim medicatio n Not available Not available Not available 02/25/2018 67202 9 RxNorm Ilana knowles [facility] 8 08:28:47 Medications Name Sig Start Date [...] Not Available Not Available Not Available Vitals None Recorded Social History Question Answer Notes LastModified by Organizat ion Details LastModified Time Tobacco Smoking Status Never Smoker Not Available [facility] 09/27/2020 03:36:23 What Was The Date Of [...] 50 mcg/0.25mL dose 06/29/2021 completed Not Available [facility] 06:14:15 Tdap 05/13/2018 completed Not Available [facility] 11/27/2023 06:14:15 Past Encounters Encounter ID Performer Location Encounter Start Date Encounter Closed Date Diagnosis/Indication Diagnosis SNOMED-CT Code Diagnosis ICD10 Code Diagnosis IMO Codes Diagnosis Note [id number] DO [facility] [address],[place] [address] 11/10/2025 09:34:44 11/10/2025 15:28:46 Health Concerns Section Related Observation LastModified by Organization Detai ls LastModified Time None Recorded Concern Status LastModified by Organization Details LastModified Time None Recorded Payers Encounter Date Sequence Insurance Name Policy Number Policy De Oliveira Covered Member ID De Oliveira Member ID Guarantor Name 11/10/[address] [facility] [place] [place] [id number] Christopher Isaactbriant [id number] Vanesa Pontbriant OBGyn Episode No OBEpisode recorded.
== END 2025-11-24 11:28 | disposition home or self-care (01) ==
LOC: HO.HSM 10:50
PROVIDERS: PCP Internal Medicine; Visit Provider Psychiatry & Neurology Neurology
DX: G40.909 Epilepsy, unspecified, not intractable, without status epilepticus (principal)
CPT/HCPCS: 99204